=== PATIENT | female | born 1950 | race Caucasian/White ===

== ENCOUNTER 2020-04-20 08:41 | Outpatient (CLI) | payer MEDICARE, SELFPAY ==
--- NOTE | ~2020-04-20 | MM_ITS ---
EXAMINATION: MM screening aryan BI w jaz HISTORY: Screening TECHNIQUE: Craniocaudal and mediolateral oblique 3-D tomosynthesis images were obtained and synthetic 2-D images were generated. CAD analysis was submitted and interpreted. COMPARISON: Comparison to multiple prior studies sequentially, with oldest reviewed study dated 06/14. BREAST PARENCHYMAL COMPOSITION: There are scattered areas of fibroglandular density. FINDINGS: There are developing asymmetries in the right breast. There is no evidence of suspicious ma ss, calcification, or architectural distortion to suggest malignancy in the left breast. IMPRESSION: 1. Developing right breast asymmetries. 2. Additional mammographic views and possible breast ultrasound are recommended. BI-RADS Category 0: Incomplete: Needs additional imaging evaluation. Reviewed, dictated and finalized at location A. IMPRESSION: 1. Developing right breast asymmetries. 2. Additional mammographic views and possible breast ultrasound are recommended . BI-RADS Category 0: Incomplete: Needs additional imaging evaluation.
== END 2020-04-20 08:42 | disposition home or self-care (01) ==
PROVIDERS: PCP Family Medicine; Visit Provider Family Medicine
DX: Z12.31 Encounter for screening mammogram for malignant neoplasm of breast (principal)
CPT/HCPCS: 77063; 77067

== ENCOUNTER 2020-04-26 08:52 | Outpatient (CLI) | payer MEDICARE, SELFPAY ==
--- NOTE | ~2020-04-26 | MMUS_ITS ---
EXAMINATION: MM diagnostic aryan RT w jaz, US breast RT complete HISTORY: Follow-up right breast asymmetry TECHNIQUE: Additional 3-D tomosynthesis images of the right breast were performed and synthetic 2-D i mages were generated. CAD analysis was submitted and interpreted. High resolution right breast ultras ound was performed. COMPARISON: Comparison to multiple prior studies sequentially, with oldest reviewed study dated 06/14. BREAST PARENCHYMAL COMPOSITION: The breasts are heterogenously dense, which may obscure small masses. FINDINGS: MAMMOGRAPHIC FINDINGS: There are no suspicious masses, calcifications or architectural distortion in the right breast to sug gest malignancy. ULTRASOUND: Right breast ultrasound: At 4:00 there is a 3 mm cyst. No suspicious masses to suggest malignancy. IMPRESSION: 1. No mammographic or sonographic evidence for malignancy in the right breast. 2. Routine yearly screening mammogram and regular clinical breast examination are recommended. BI-RADS Category 2: Benign finding(s). Reviewed, dictated and finalized at location A. IMPRESSION: 1. No mammographic or sonographic evidence for malignancy in the right breast. 2. Routine yearly screening mammogram and regular clinical breast examination a re recommended. BI-RADS Category 2: Benign finding(s).
== END 2020-04-26 08:53 | disposition home or self-care (01) ==
LOC: CHSIMG 08:55
PROVIDERS: PCP Nurse Practitioner; Visit Provider Nurse Practitioner
DX: R92.8 Other abnormal and inconclusive findings on diagnostic imaging of breast (principal)
CPT/HCPCS: 76641; 77061; 77065; G0279

== ENCOUNTER 2020-12-29 08:34 | Outpatient (CLI) | payer MEDICARE, SELFPAY ==
[2020-12-29 08:49] LABS: Basophils Absolute Auto 0.06 K/mm3 (0.00-0.10); Basophils Percent Auto 0.7 % (0.0-1.0); Eosinophils Absolute Auto 0.29 K/mm3 (0.02-0.50); Eosinophils Percent Auto 3.2 % (1.0-6.0); Hematocrit 40.9 % (35.0-42.0); Hemoglobin 13.2 g/dL (11.7-13.8); Immature Granulocyte Absolute 0.04 K/mm3 (0.00-0.00); Immature Granulocyte Percent A 0.4 % (0.0-0.0); Lymphocytes Absolute Auto 3.03 K/mm3 (1.10-4.50); Lymphocytes Percent Auto 33.3 % (18.0-42.0); Mean Corpuscular HGB Conc 32.3 g/dL (32.0-36.0); Mean Corpuscular Hemoglobin 27.7 pg (27.0-31.0); Mean Corpuscular Volume 85.9 fL (78.0-102.0); Monocytes Absolute Auto 0.74 K/mm3 (0.10-0.90); Monocytes Percent Auto 8.1 % (2.0-11.0); Neutrophils Absolute Auto 4.9 K/mm3 (1.7-7.2); Neutrophils Percent Auto 54.3 % (50.0-70.0); Platelet Count Result 339 K/mm3 (150-420); Red Blood Count 4.76 M/mm3 (4.20-5.40); Red Cell Distribution Width 13.9 % (11.6-14.4); White Blood Count 9.1 K/mm3 (4.8-10.8)
[2020-12-29 09:30] LABS: Alanine Aminotransferase 31 U/L (14-59); Albumin Level 3.8 g/dL (3.4-5.0); Alkaline Phosphatase 126 U/L (46-116); Anion Gap 9 mmol/L (8-16); Aspartate Amino Transferase 12 U/L (15-37); Bilirubin,Total 0.6 mg/dL (0.00-1.00); Blood Urea Nitrogen 18 mg/dL (7-18); Calcium 9.6 mg/dL (8.5-10.1); Carbon Dioxide 28 mmol/L (21-32); Chloride 103 mmol/L (98-108); Cholesterol 153 mg/dL (0-200); Estimated Glomerular Filt Rate > 60; Glucose 110 mg/dL (70-99); HDL Direct 49 mg/dL (40-60); LDL Cholesterol Calculated 79 mg/dL (<130); Osmolality Calculated 292 mOsm/kg (285-295); Potassium 4.3 mmol/L (3.5-5.1); Sodium 140 mmol/L (136-145); Thyroid Stimulating Hormone 1.08 uIU/mL (0.36-3.74); Total Protein 7.1 g/dL (6.4-8.2); Triglycerides 124 mg/dL (0-150)
== END 2020-12-29 08:35 | disposition home or self-care (01) ==
LOC: CHSLAB 08:38
PROVIDERS: PCP Nurse Practitioner; Visit Provider Nurse Practitioner
DX: E78.2 Mixed hyperlipidemia (principal); E03.9 Hypothyroidism, unspecified
CPT/HCPCS: 36415; 80053; 80061; 84443; 85025

== ENCOUNTER 2021-02-28 13:46 | Outpatient (CLI) | payer MEDICARE, SELFPAY ==
--- NOTE | ~2021-02-28 | DEXA_ITS ---
Bone Density Report Name: Ludivina Townsend Age: 70 Sex: Female Ethnicity: White Date of : 1950 Indication: hyperparathyroidism; Referring Provider: Cassidy, Elly Hendrickson Study: Bone densitometry was performed. Exam Date: February 28, 2021 Accession number: [id number] Bone Density: Region BMD T-score Z-score Classification AP Spine(L2, L3, L4) 1.104 0.2 2.4 Normal Femoral Neck (Left) 0.587 -2.4 -0.5 Osteopenia Total Hip (Left) 0.788 -1.3 0.3 Osteopenia Femoral Neck (Right) 0.799 -0.5 1.4 Normal Total Hip (Right) 0.922 -0.2 1.4 Normal Femoral Neck Mean 0.693 -1.4 0.4 Osteopenia Total Hip Mean 0.855 -0.7 0.8 Normal World Health Organization criteria for BMD impression classify patients as: Normal (T-score at or above -1.0), Osteopenia (T-score between -1.0 and -2.5), or Osteoporosis (T-score at or below -2.5). 10-year Fracture Risk(1): Major Osteoporotic Fracture 13% Hip Fracture 3.1% Reported Risk Factors: [place] (), Neck BMD=0.587, BMI=30.7 (1) FRAX(R) Version 3.08. Fracture probability calculated for an untreated patient. Fracture probability may be lower if the patient has received treatment. Clinical Information Provided by Patient: Has used the following medications: Vitamin D, Calcium Has the following medical conditions: Hyperparathyroidism No regular weight bearing exercise Does not regularly consume dairy products Drinks caffeinated beverages Onset of menses at age 13 Number of children 2 Impression: The patient has low bone mass, based on the Left Femoral Neck T-score. Discussion: BONE DENSITY IS LOW AT ONE OR MORE SKELETAL SITES. This patient's lowest T-score is low at one or more skeletal sites. It meets the World Health Organization's (WHO) criteria for ?low bone mass? (T-score between -1.0 and -2.5). The patient's 10-year risk of fracture as calculated by FRAX is less than the threshold where pharmacological therapy is recommended by the National Osteoporosis Foundation (NOF). However, all treatment decisions require clinical judgment and consideration of individual patient factors, including patient preferences, comorbidities, previous drug use, risk factors not captured in the FRAX model (e.g., frailty, falls, vitamin D deficiency, increased bone turnover, interval significant decline in bone density) and possible under or overestimation of fracture risk by FRAX. The patient should follow a healthful lifestyle (good nutrition with adequate calcium and vitamin D, and appropriate weight-bearing exercise). Follow-Up: Consider repeating this study in 2 to 3 years to reassess this patient's status, or sooner if there is some new clinical indication. Reported by: Dr. Robert Galan on 02/28/2021 2:18:00 PM.
== END 2021-02-28 13:47 | disposition home or self-care (01) ==
LOC: CHSIMG 13:48
PROVIDERS: PCP Nurse Practitioner; Visit Provider Nurse Practitioner
DX: Z78.0 Asymptomatic menopausal state (principal)
CPT/HCPCS: 77080

== ENCOUNTER 2021-05-07 13:28 | Outpatient (CLI) | payer MEDICARE, SELFPAY ==
--- NOTE | ~2021-05-07 | US_ITS ---
EXAMINATION: US pelvic complete w TV EXAM DATE: 05/07/2021 14:14 INDICATION: N95.0 - Postmenopausal bleeding. TECHNIQUE: Pelvic transabdominal and transvaginal sonogram was performed. There are multiple graysca le and Doppler images available for interpretation. There is no prior study for comparison. FINDINGS: Uterus measures 5.3 x 3.2 x 3.9 cm, with region believed to be endometrium poorly delineat ed but could be up to 1.5 cm. Could be endometrial hyperplasia, polyp, submucosal fibroid or cancer. There is no free pelvic fluid. Right adnexa: The ovary is not identified. There is no adnexal mass. Left adnexa: The ovary is not identified. There is no adnexal mass. IMPRESSION: Ill-defined and probably thickened endometrial measurement, differential diagnosis includ ing endometrial hyperplasia, polyp, submucosal fibroid and cancer. Consider MRI or histologic correl ation. Reviewed, dictated and finalized at location A. IMPRESSION: Ill-defined and probably thickened endometrial measurement, differe ntial diagnosis including endometrial hyperplasia, polyp, submucosal fibroid an d cancer. Consider MRI or histologic correlation.
--- NOTE | ~2021-05-07 | MM_ITS ---
EXAMINATION: MM screening aryan BI w jaz HISTORY: Screening mammogram, family history of breast cancer in her sister. TECHNIQUE: Craniocaudal and mediolateral oblique 3-D tomosynthesis images were obtained and synthetic 2-D images were generated. CAD analysis was submitted and interpreted. COMPARISON: 04/26/2020, 04/20/2020, 10/01/2018, 09/18/2016 BREAST PARENCHYMAL COMPOSITION: There are scattered areas of fibroglandular density. FINDINGS: There is no evidence of suspicious mass, calcification, or architectural distortion to sugg est malignancy in either breast. There has been no suspicious interval change. IMPRESSION: 1. No mammographic evidence of malignancy. 2. Recommend routine screening mammography in one year. BI-RADS Category 1: Negative Reviewed, dictated and finalized at location A.
== END 2021-05-07 13:29 | disposition home or self-care (01) ==
LOC: CHSIMG 13:30
PROVIDERS: PCP Family Medicine; Visit Provider Obstetrics & Gynecology
DX: Z12.31 Encounter for screening mammogram for malignant neoplasm of breast (principal); N95.0 Postmenopausal bleeding
CPT/HCPCS: 76830; 76856; 77063; 77067

== ENCOUNTER 2022-06-09 07:21 | Outpatient (CLI) | payer MEDICARE, SELFPAY ==
--- NOTE | ~2022-06-09 | MM_ITS ---
EXAMINATION: MM screening aryan BI w jaz HISTORY: Screening mammogram TECHNIQUE: Craniocaudal and mediolateral oblique 3-D tomosynthesis images were obtained and synthetic 2-D images were generated. CAD analysis was submitted and interpreted. COMPARISON: 05/03/2021 bilateral screening mammogram 04/26/2020 diagnostic right mammogram and complete right breast ultrasound examination 04/20/2020 bilateral screening mammogram BREAST PARENCHYMAL COMPOSITION: There are scattered areas of fibroglandular density. FINDINGS: Right breast: Asymmetric density and architectural distortion is suggested in the upper mid outer rig ht breast anteriorly (MLO Tomosynthesis image 30/72). Diagnostic right mammogram and right breast ult rasound examination are recommended. Left breast: There is no evidence of suspicious mass, calcification, or architectural distortion to s uggest malignancy in either breast. There has been no suspicious interval change. IMPRESSION: 1. Asymmetry/architectural distortion in anterior upper right breast on MLO view 2. Diagnostic right mammogram and right breast ultrasound examination are recommended. BI-RADS Category 0: Incomplete: Needs additional imaging evaluation. Reviewed, dictated and finalized at location A. IMPRESSION: 1. Asymmetry/architectural distortion in anterior upper right breast on MLO vie w 2. Diagnostic right mammogram and right breast ultrasound examination are recom mended. BI-RADS Category 0: Incomplete: Needs additional imaging evaluation.
== END 2022-06-09 07:22 | disposition home or self-care (01) ==
PROVIDERS: PCP Nurse Practitioner; Visit Provider Nurse Practitioner
DX: Z12.31 Encounter for screening mammogram for malignant neoplasm of breast (principal)
CPT/HCPCS: 77063; 77067

== ENCOUNTER 2022-06-23 09:39 | Outpatient (CLI) | payer MEDICARE, SELFPAY ==
--- NOTE | ~2022-06-23 | MMUS_ITS ---
EXAMINATION: MM diagnostic aryan RT w jaz, US breast RT limited HISTORY: Follow-up right breast asymmetries TECHNIQUE: Additional 3-D tomosynthesis images of the right breast were performed and synthetic 2-D i mages were generated. CAD analysis was submitted and interpreted. High resolution Limited right breas t ultrasound was performed. COMPARISON: Comparison to multiple prior studies sequentially, with oldest reviewed study dated 01/2017. BREAST PARENCHYMAL COMPOSITION: Breast composed of scattered areas of fibroglandular density FINDINGS: MAMMOGRAPHIC FINDINGS: No discrete mass, suspicious calcifications or architectural distortion are identified. ULTRASOUND: Limited right breast ultrasound: At 10:00, 6 cm from the nipple there is a 4 mm cyst. No suspicious m asses in the right breast to suggest malignancy. IMPRESSION: 1. No evidence for malignancy in the right breast. 2. Routine yearly screening mammogram and regular clinical breast examination are recommended. BI-RADS Category 2: Benign finding(s). Reviewed, dictated and finalized at location A. IMPRESSION: 1. No evidence for malignancy in the right breast. 2. Routine yearly screening mammogram and regular clinical breast examination a re recommended. BI-RADS Category 2: Benign finding(s).
== END 2022-06-23 09:40 | disposition home or self-care (01) ==
PROVIDERS: PCP Family Medicine; Visit Provider Nurse Practitioner
DX: R92.8 Other abnormal and inconclusive findings on diagnostic imaging of breast (principal)
CPT/HCPCS: 76642; 77061; 77065; G0279

== ENCOUNTER 2022-12-08 07:22 | Outpatient (CLI) | payer MEDICARE, SELFPAY ==
--- NOTE | ~2022-12-08 | XR_ITS ---
EXAMINATION: XR knee RT min 4V DATE: 12/08/2022 07:53 INDICATION: Right knee pain. TECHNIQUE: 4 views of right knee on 5 radiographs were obtained. COMPARISON: None. FINDINGS: Bone alignment is normal. No fracture. There is moderate osteoarthritis of medial compartme nt and mild osteoarthritis of lateral and patellofemoral compartments. No knee joint effusion. There are loose bodies in the posterior knee joint and in a Frederick's cyst. IMPRESSION: 1. Moderate right knee osteoarthritis. 2. Loose bodies in the joint and in a Frederick's cyst. Reviewed, dictated and finalized at location A.
== END 2022-12-08 07:23 | disposition home or self-care (01) ==
LOC: CHSIMG 07:26
PROVIDERS: PCP Nurse Practitioner; Visit Provider Orthopaedic Surgery
DX: M25.561 Pain in right knee (principal); M17.11 Unilateral primary osteoarthritis, right knee; M71.21 Synovial cyst of popliteal space [Baker], right knee
CPT/HCPCS: 73564

== ENCOUNTER 2022-12-12 08:28 | Outpatient (CLI) | payer MEDICARE, SELFPAY ==
--- NOTE | ~2022-12-12 | US_ITS ---
EXAMINATION: US arterial ankle brachial ind DATE: 12/12/2022 09:12 INDICATION: Other specified symptoms and signs involving the circulatory system. TECHNIQUE: Segmental pressures and plethysmographic and Doppler waveforms of the brachial and lower e xtremity arteries were obtained. COMPARISON: None. FINDINGS: Right and left brachial artery pressures of 144 mm Hg and 154 mm Hg, respectively, are concordant (no rmal difference <= 30 mmHg). The right ankle-brachial index (HUMA) is 1.14 (normal >= 0.9-1.0). The right great toe-brachial index (TBI) is 0.84 (normal >= 0.65). Arterial Doppler waveforms are triphasic at the ankle. The left HUMA is 1.21. The left TBI is 0.71. Arterial Doppler waveforms are triphasic in posterior tib ial artery and biphasic in dorsalis pedis. IMPRESSION: 1. No significant arterial occlusive disease. Reviewed, dictated and finalized at location A.
== END 2022-12-12 08:29 | disposition home or self-care (01) ==
LOC: CHSIMG 08:30
PROVIDERS: PCP Nurse Practitioner; Visit Provider Nurse Practitioner
DX: R09.89 Other specified symptoms and signs involving the circulatory and respiratory systems (principal)
CPT/HCPCS: 93922

== ENCOUNTER 2023-01-15 09:16 | Outpatient (CLI) | payer MEDICARE, SELFPAY ==
--- NOTE | 2023-01-15 11:00 | NEURO_ITS ---
Impression: # Complains of numbness in all extremities. History of cancer and chemotherapy. 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 # Needle/EMG exam reveals scarcity of motor unit potentials but no fibrillations. Nerve Conduction Studies Anti Sensory Summary Table Stim Site NR Peak (ms) P-T Amp (?V) Site1 Site2 Delta-P (ms) Dist (cm) Ramy (m/s) Left Median Anti Sensory (2-3nd Digit) Wrist 3.5 33.6 Wrist 2-3nd Digit 3.5 14.0 40 Wrist 3.6 22.5 Wrist 2-3nd Digit 3.5 14.0 40 Right Median Anti Sensory (2-3nd Digit) Wrist 4.0 38.4 Wrist 2-3nd Digit 4.0 14.0 35 Wrist 5.3 29.4 Wrist 2-3nd Digit 4.0 14.0 35 Left Radial Anti Sensory (Base 1st Digit) Wrist 2.5 7.6 Wrist Base 1st Digit 2.5 0.0 Right Radial Anti Sensory (Base 1st Digit) Wrist 3.3 16.5 Wrist Base 1st Digit 3.3 0.0 Left Sup Fibular Anti Sensory (Ant Lat Mall) NO RESPONSE 14 cm NR 14 cm Ant Lat Mall 16.0 Right Sup Fibular Anti Sensory (Ant Lat Mall) NO RESPONSE 14 cm NR 14 cm Ant Lat Mall 16.0 Left Sural Anti Sensory (Lat Mall) NO RESPONSE Calf NR Calf Lat Mall 16.0 Right Sural Anti Sensory (Lat Mall) NO RESPONSE Calf NR Calf Lat Mall 16.0 Left Ulnar Anti Sensory (5th Digit) Wrist 3.1 56.7 Wrist 5th Digit 3.1 14.0 45 Right Ulnar Anti Sensory (5th Digit) NO RESPONSE Wrist NR Wrist 5th Digit 14.0 Motor Summary Table Stim Site NR Onset (ms) O-P Amp (mV) Site1 Site2 Delta-0 (ms) Dist (cm) Ramy (m/s) Left Median Motor (Abd Poll Brev) Wrist 3.7 4.2 Elbow Wrist 5.1 29.0 57 Elbow 8.8 3.5 Right Median Motor (Abd Poll Brev) Wrist 3.8 3.0 Elbow Wrist 4.8 27.0 56 Elbow 8.6 1.8 Left Peroneal Motor (Vastus Med) NO RESPONSE Ankle NR Popit Ankle 0.0 Popit NR Right Peroneal Motor (Vastus Med) Ankle 5.5 1.1 Popit Ankle 9.0 38.0 42 Popit 14.5 1.4 Left Tibial Motor (Abd Bruno Brev) Ankle 5.0 1.0 Knee Ankle 9.2 40.0 43 Knee 14.2 0.5 Right Tibial Motor (Abd Brnuo Brev) Ankle 5.3 1.0 Knee Ankle 10.3 36.0 35 Knee 15.6 0.5 Left Ulnar Motor (Abd Dig Minimi) Wrist 2.7 6.4 A Elbow Wrist 5.8 29.0 50 A Elbow 8.5 3.5 B Elbow Wrist 4.3 22.0 51 B Elbow 7.0 5.0 Right Ulnar Motor (Abd Dig Minimi) Wrist 2.8 5.4 A Elbow Wrist 6.2 29.0 47 A Elbow 9.0 3.4 B Elbow Wrist 4.3 21.0 49 B Elbow 7.1 4.5 F Wave Studies NR F-Lat (ms) L-R F-Lat (ms) Left Median (Mrkrs) (Abd Poll Brev) 29.38 1.23 Right Median (Mrkrs) (Abd Poll Brev) 30.61 1.23 Left Peroneal (Mrkrs) (EDB) DISPERSED RESPONSE NR Right Peroneal (Mrkrs) (EDB) DISPERSED RESPONSE NR Left Tibial (Mrkrs) (Abd Hallucis) 57.86 3.32 Right Tibial (Mrkrs) (Abd Hallucis) 61.18 3.32 Left Ulnar (Mrkrs) (Abd Dig Min) 28.89 1.93 Right Ulnar (Mrkrs) (Abd Dig Min) 30.82 1.93 EMG Side Muscle Nerve Root Ins Act Fibs Amp Dur Recrt Comment Right 1stDorInt Ulnar C8-T1 Nml Nml Nml >12ms Reduced Right Ext Indicis Radial (Post Int) C7-8 Nml Nml Nml Nml Nml Right Ext Digitorum Radi
== END 2023-01-15 09:17 | disposition home or self-care (01) ==
LOC: ANHNEURO 09:17
PROVIDERS: PCP Nurse Practitioner; Visit Provider Nurse Practitioner
DX: G62.0 Drug-induced polyneuropathy (principal)
CPT/HCPCS: 95886; 95913

== ENCOUNTER 2023-01-29 09:44 | Outpatient (CLI) | payer MEDICARE, SELFPAY ==
--- NOTE | ~2023-01-29 | XR_ITS ---
XR hip LT min 2V 01/29/2023 10:09 Indication: Posterior left hip pain Procedure: 2 views left hip Comparison: No prior studies for comparison. Findings: Mild osteoarthritis of the left hip. No fracture or traumatic malalignment. No soft tissue abnormality. No foreign bodies. Impression: 1: Mild osteoarthritis of the left hip. Reviewed, dictated and finalized at location L. Impression: 1: Mild osteoarthritis of the left hip.
== END 2023-01-29 09:45 | disposition home or self-care (01) ==
LOC: CHSIMG 09:47
PROVIDERS: PCP Nurse Practitioner; Visit Provider Nurse Practitioner
DX: M25.552 Pain in left hip (principal); M16.12 Unilateral primary osteoarthritis, left hip
CPT/HCPCS: 73502

== ENCOUNTER 2023-01-30 16:43 | Outpatient (RCR) | payer MEDICARE, SELFPAY ==
--- NOTE | 2023-01-30 17:34 | PTOPEVAL1 ---
Assessment and note entered by JT File, PT Evaluation Information Assessment Status Evaluation Diagnosis L side low back pain Onset 01/12/23 Subjective Information patient reports she fell and hit a step on the L side of her lower back. she reports this fall was on 01/12/23. she reports she is not getting any better. she reports she has increased pain with twisting to the L side and bending forward. she reports she has difficulty trying to dry off from a shower, bending to plant schaefer in her garden, and getting up from sitting in a chair are all bothersome. she reports she has not NTB in the L LE. Reported Pain Level Pain Score 7: Self Report Assessment PT Clinical Summary mrs. rodriguez presents to skilled PT services for evaluation and treatment of L side thoracolumbar pain. she presents with lumbar/core weakness, LE weakness, decreased rom, and pain. she displays signs and symptoms consistent with L thoracolumbar paraspinal mm hypertonicity and DDD. she would benefit from continued skilled PT to improve her objective/functional deficits and progress toward a return to her prior level functional activity performance and quality of life. Plan of Care Interventions Electrical Stimulation,Gait Training,Hot Pack/Cold Pack,Manual Therapy,Neuro Re-education,Patient/ Caregiver Educati,Therapeutic Activities, Therapeutic Exercise PT Services Indicated Yes Treatment Frequency and 3x weekly for 12 visits Duration These treatments will address the objective and functional deficits as defined above. The patient will be advanced safely and appropriately in order for the patient to progress towards his/her prior level of function. Additional exercises will be introduced and as well as a comprehensive home exercise program upon discharge, if needed, ?to ensure carryover of functional gains achieved in the clinic. This treatment plan has been reviewed and agreement upon by the patient.
--- NOTE | 2023-03-04 16:34 | PTOPPROGNS ---
Assessment and note entered by Renetta Corley DPT Evaluation Information Assessment Status Progress Diagnosis L side low back pain Onset 01/12/23 Subjective Information Patient reports that she has noticed good improvement since starting PT. Assessment PT Clinical Summary Patient has been seen for 0 visits of skilled PT to address low back pain. Patient reports improvement in overall pain levels. She demonstrates improved LE strength and improved lumbar ROM but continues to lack core and hip abduction strength. She reports difficulty with standing for long periods of time to cook and clean. She would benefit from continued skilled PT for remaining [address] [facility]. Plan of Care Interventions Electrical Stimulation,Gait Training,Hot Pack/Cold Pack,Manual Therapy,Neuro Re-education,Patient/ Caregiver Educati,Therapeutic Activities, Therapeutic Exercise PT Services Indicated Yes Treatment Frequency and continue remaining 2 visits Duration These treatments will address the objective and functional deficits as defined above. The patient will be advanced safely and appropriately in order for the patient to progress towards his/her prior level of function. Additional exercises will be introduced and as well as a comprehensive home exercise program upon discharge, if needed, ?to ensure carryover of functional gains achieved in the clinic. This treatment plan has been reviewed and agreement upon by the patient.
--- NOTE | 2023-03-11 10:43 | PTOPDC ---
Assessment and note entered by Stephanie Woodall, PT Evaluation Information Assessment Status Discharge Diagnosis L Low Back Pain Onset 01/12/23 Subjective Information Ludivina Townsend reports that her lower back pain has improved significantly since in initiating PT. She is reporting 0/10 pain currently and has not had pain over the last week. She is able to perform all ADLs including driving, walking, and grocery shopping without difficulty. She feels she has improved 90% overall and she is ready for discharge. Reported Pain Level Pain Score 0: Self Report Assessment PT Clinical Summary Ludivina Townsend has completed 12 skilled PT visits for LBP. She is reporting a resolution of low back pain and feels she has improved 90% overall. She demonstrates functional and pain free lumbar AROM, good LE strength, good balance, and good gait mechanics. She was able to ambulate 1, 325 feet without an AD during the 6 min walk test. She is independent in a home program to continue lumbar ROM, LE flexibility, and core strengthening . She will be discharged. Plan of Care PT Services Indicated Yes
== END 2023-03-11 13:36 | disposition home or self-care (01) ==
LOC: CHSPT 16:43
PROVIDERS: PCP Nurse Practitioner; Visit Provider Nurse Practitioner
DX: M25.552 Pain in left hip (principal)
CPT/HCPCS: 97014; 97110; 97112; 97140; 97150; 97161; 97750; G0283

== ENCOUNTER 2023-06-10 09:07 | Outpatient (CLI) | payer MEDICARE, SELFPAY ==
--- NOTE | ~2023-06-10 | DEXA_ITS ---
Bone Density Report Name: FAUSTO PACHECO Age: 72 Sex: Female Ethnicity: White Date of : 1950 Indication: postmenopausal; screening for osteoporosis; height loss; prior fracture; cancer; Referring Provider: Cassidy, Elly Hendrickson Study: Bone densitometry was performed. Exam Date: June 10, 2023 Accession number: [id number] Bone Density: Region BMD T-score Z-score Classification AP Spine(L2, L3, L4) 1.092 0.1 2.5 Normal Femoral Neck (Left) 0.613 -2.1 -0.2 Osteopenia Total Hip (Left) 0.800 -1.2 0.5 Osteopenia Femoral Neck (Right) 0.661 -1.7 0.3 Osteopenia Total Hip (Right) 0.859 -0.7 1.0 Normal Femoral Neck Mean 0.637 -1.9 0.0 Osteopenia Total Hip Mean 0.830 -0.9 0.7 Normal World Health Organization criteria for BMD impression classify patients as: Normal (T-score at or above -1.0), Osteopenia (T-score between -1.0 and -2.5), or Osteoporosis (T-score at or below -2.5). 10-year Fracture Risk(1): Major Osteoporotic Fracture 19% Hip Fracture 3.9% Reported Risk Factors: [place] (), Neck BMD=0.613, BMI=32.3, previous fracture (1) FRAX(R) Version 3.08. Fracture probability calculated for an untreated patient. Fracture probability may be lower if the patient has received treatment. Clinical Information Provided by Patient: Has had a low trauma fracture Has used the following medications: Vitamin D, Calcium Has the following medical conditions: Cancer Patient maximum height was 66 Menopause Age: 51 No regular weight bearing exercise Does not regularly consume dairy products Drinks caffeinated beverages Onset of menses at age 14 Number of children 2 Impression: The patient has low bone mass, based on the Left Femoral Neck T-score. The patient has risk factors, including: previous fracture. Discussion: BONE DENSITY IS LOW AT ONE OR MORE SKELETAL SITES. This patient's lowest T-score is low at one or more skeletal sites. It meets the World Health Organization's (WHO) criteria for ?low bone mass? (T-score between -1.0 and -2.5). The patient's 10-year risk of fracture as calculated by FRAX is less than the threshold where pharmacological therapy is recommended by the National Osteoporosis Foundation (NOF). However, all treatment decisions require clinical judgment and consideration of individual patient factors, including patient preferences, comorbidities, previous drug use, risk factors not captured in the FRAX model (e.g., frailty, falls, vitamin D deficiency, increased bone turnover, interval significant decline in bone density) and possible under or overestimation of fracture risk by FRAX. The patient should follow a healthful lifestyle (good nutrition with adequate calcium and vitamin D, and appropriate weight-bearing exercise). Follow-Up: Consider repeating this study in 2 to 3 years to reassess this patient's status, or sooner i
--- NOTE | ~2023-06-10 | MM_ITS ---
EXAMINATION: MM screening aryan BI w jaz HISTORY: Screening mammogram TECHNIQUE: Craniocaudal and mediolateral oblique 3-D tomosynthesis images were obtained and synthetic 2-D images were generated. CAD analysis was submitted and interpreted. COMPARISON: 06/23/2022 diagnostic right mammogram and limited right breast ultrasound 06/09/2022, 05/03/2021 bilateral screening mammogram examinations BREAST PARENCHYMAL COMPOSITION: There are scattered areas of fibroglandular density. FINDINGS: There is no evidence of suspicious mass, calcification, or architectural distortion to sugg est malignancy in either breast. There has been no suspicious interval change. IMPRESSION: 1. No mammographic evidence of malignancy. 2. Recommend routine screening mammography in one year. BI-RADS Category 1: Negative Reviewed, dictated and finalized at location A.
== END 2023-06-10 09:08 | disposition home or self-care (01) ==
LOC: CHSIMG 09:09
PROVIDERS: PCP Nurse Practitioner; Visit Provider Nurse Practitioner
DX: Z12.31 Encounter for screening mammogram for malignant neoplasm of breast (principal); Z78.0 Asymptomatic menopausal state; M85.89 Other specified disorders of bone density and structure, multiple sites
CPT/HCPCS: 77063; 77067; 77080

== ENCOUNTER 2024-08-15 12:52 | Outpatient (CLI) | payer MEDICARE, SELFPAY ==
--- NOTE | ~2024-08-15 | MM_ITS ---
EXAMINATION: MM screening aryan BI w jaz HISTORY: Screening TECHNIQUE: Craniocaudal and mediolateral oblique 3-D tomosynthesis images were obtained and synthetic 2-D images were generated. CAD analysis was submitted and interpreted. COMPARISON: Comparison to multiple prior studies sequentially, with oldest reviewed study dated 04/20/2020. BREAST PARENCHYMAL COMPOSITION: Not dense: There are scattered areas of fibroglandular density. FINDINGS: There is architectural distortion in the upper outer quadrant of the right breast, not defi nitely seen on prior examination. There are benign appearing calcifications. No evidence for malignan cy in the left breast. IMPRESSION: 1. Architectural distortion lateral aspect of the right breast on CC view. 2. Additional mammographic views and possible breast ultrasound are recommended. BI-RADS Category 0: Incomplete: Needs additional imaging evaluation. Reviewed, dictated and finalized at location B. INTEGRITY IMPRESSION: 1. Architectural distortion lateral aspect of the right breast on CC view. 2. Additional mammographic views and possible breast ultrasound are recommended . BI-RADS Category 0: Incomplete: Needs additional imaging evaluation.
== END 2024-08-15 12:53 | disposition home or self-care (01) ==
PROVIDERS: PCP Nurse Practitioner; Visit Provider Nurse Practitioner
DX: Z12.31 Encounter for screening mammogram for malignant neoplasm of breast (principal); R92.8 Other abnormal and inconclusive findings on diagnostic imaging of breast
CPT/HCPCS: 77063; 77067

== ENCOUNTER 2024-08-29 09:23 | Outpatient (CLI) | payer MEDICARE, SELFPAY ==
--- NOTE | ~2024-08-29 | MMUS_ITS ---
EXAMINATION: MM diagnostic aryan RT w jaz, US breast RT limited HISTORY: Follow-up right breast architectural distortion TECHNIQUE: Additional 3-D tomosynthesis images of the right breast were performed and synthetic 2-D i mages were generated. CAD analysis was submitted and interpreted. High resolution Limited right breas t ultrasound was performed. COMPARISON: Comparison to multiple prior studies sequentially, with oldest reviewed study dated 04/26. BREAST PARENCHYMAL COMPOSITION: Not dense: There are scattered areas of fibroglandular density. FINDINGS: MAMMOGRAPHIC FINDINGS: There is focal architectural distortion laterally in the right breast on CC view. This is not delinea drea on medial lateral or MLO views. No definite centrally located mass. ULTRASOUND: Limited right breast ultrasound: Oral heterogeneous echotexture without focal solid or cystic mass. IMPRESSION: 1. Architectural distortion lateral aspect of the right breast on CC view. No sonographic correlate. 2. Correlation with breast MRI is recommended to assess for abnormal enhancing mass. BI-RADS Category 0: Incomplete: Needs additional imaging evaluation. Reviewed, dictated and finalized at location B. H MAKING MACHINE OPERATOR IMPRESSION: 1. Architectural distortion lateral aspect of the right breast on CC view. No s onographic correlate. 2. Correlation with breast MRI is recommended to assess for abnormal enhancing mass. BI-RADS Category 0: Incomplete: Needs additional imaging evaluation.
== END 2024-08-29 09:24 | disposition home or self-care (01) ==
LOC: CHSIMG 09:27
PROVIDERS: PCP Nurse Practitioner; Visit Provider Nurse Practitioner
DX: R92.8 Other abnormal and inconclusive findings on diagnostic imaging of breast (principal)
CPT/HCPCS: 76642; 77061; 77065; G0279

== ENCOUNTER 2024-10-10 09:57 | Outpatient (CLI) | payer MEDICARE, SELFPAY ==
--- NOTE | ~2024-10-10 | MR_ITS ---
MR breast BI wo/w con 10/10/2024 16:08 CONSTRUCTION REP INDICATION: Architectural distortion identified in the lateral aspect of the right breast on recent m ammogram. No sonographic correlate. TECHNIQUE: MRI of the breasts perform using standard protocol pre-and post IV contrast with the follo wing sequences: Axial T2 STIR, axial T1, axial vibrant T1 with fat suppression precontrast and multip hasic postcontrast. 17 cc of MultiHance administered intravenously. COMPARISON: Comparison to multiple prior studies sequentially, with oldest reviewed study dated 05/07. FINDINGS: There is heterogeneous fibroglandular tissue. Right breast: There are no abnormalities on the precontrast sequences. There is mild background paren chymal enhancement. In the upper outer quadrant of the right breast there is an enhancing mass at 10: 00, middle third, 6.2 cm posterior to the nipple measuring 10 x 8 x 9 mm. There is rapid plateau enha ncement. In the lower outer quadrant of the right breast at 8:00, middle third there is a 5 mm oval e nhancing mass which appears circumscribed with rapid washout kinetics. There are mildly prominent rig ht axillary lymph node with loss of fatty hilum one of which measures 1.2 cm with rapid washout enhan cement. There is a mildly prominent lymph node posterior to the pectoralis muscle measuring 1.4 x 0.7 x 0.9 cm with rapid washout kinetics. LEFT BREAST: No signal abnormalities on precontrast sequences. There is moderate background parenchy mal enhancement. There are multiple areas of nonmass-like enhancement, likely background enhancement in the left breast in the lower inner quadrants of the left breast there is an oval mass at 9:00, mid dle third measuring 8 x 4 x 4 mm with rapid washout kinetics. No evidence of signal abnormalities in the axillary or internal mammary node distributions.] IMPRESSION: 1: Right breast: Enhancing 1 cm mass in the upper outer quadrant of the right breast with rapid plat eau enhancement. This likely corresponds to the area of architectural distortion seen on mammography. Abnormal lymph nodes are present in the right axilla and posterior to the pectoralis muscle. Further evaluation with MRI guided biopsy recommended to exclude malignancy. BI-RADS Category 4. 2: Left breast: Enhancing 8 mm mass of the left breast in the lower inner quadrant at 9:00, middle t hird measuring 8 mm maximum dimension with rapid washout kinetics. Recommend correlation with left br east ultrasound. BI-RADS Category 0. Reviewed, dictated and finalized at location A. TRUCTION REP IMPRESSION: 1: Right breast: Enhancing 1 cm mass in the upper outer quadrant of the right breast with rapid plateau enhancement. This likely corresponds to the area of a rchitectural distortion seen on mammography. Abnormal lymph nodes are present i n the right axilla and posterior to the pectoralis muscle. Further evaluation w ith MRI guided biopsy recommended to exclude malignancy. BI-RADS Category 4. 2: Left breast: Enhancing 8 mm mass of the left breast in the lower inner quad rant at 9:00, middle third measuring 8 mm maximum dimension with rapid washout kinetics. Recommend correlation with left breast ultrasound. BI-RADS Category 0 .
--- OUTSIDE RECORDS SUMMARY | 2024-10-10 10:48 | XMS_ITS | Data Portability ---
Author Organization [facility], [address] 4[address] Neurology ([facility]) Address [address] [address] Care Team Providers Care Assembly Machine Operator Name Role Phone RANDI SEGAL Primary Care Provider RANDI SEGAL Referring Provider Assessment Encounter Date Assessment Date Assessment LastModified by Organization Details LastModified Time 08/22/2024 08/22/2024 1. CAD: C in 02/2020 showed moderate disease of the mid LAD. She denies any anginal symptoms. Continue aggressive treatment of CAD risk factors. Continue aspirin, Toprol, atorvastatin 2. Hyperlipidemia: Goal LDL less than 70, ideally around 55. Continue atorvastatin 3. Hypertension: BP at the upper limits of normal. Continue metoprolol. 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 Continue to monitor. 5. Tricuspid regurgitation: No significant valvular stenosis or regurgitation seen on recent echocardiogram. 6. Follow-up in 1 year. Earlier if needed. [email or web address] Not available 09/01/2024 16:33:03 Plan of Treatment Reminders Order Date Submit Date Provider Last Modified By Organization Details Last Modified Time Details Appointments Establish ed Patient 15.EST 2024 09:30A M [facility] Not available Not available Not available Lab None recorded. Referral None recorded. Procedures None recorded. Surgeries None recorded. Imaging None recorded. Medication Orders None recorded. Patient TargetsNo targets recorded. Patient InstructionsNo instructions recorded. Reason for Referral None Reported. Results Created Date Observation Date Name Description Value Unit Range Abnormal Flag Note LastModifiedBy Organization Detail LastModifiedTime 08/17/20 24 08/15/2024 , echo tariq [facility] [address] [place] [address] Ph: [phone] [email or web address] m Adult Echoca rdiogr am Report Name: Ludivina OLIVIER Study Date: 2023 : 1949 0[birth year] Gender : Female Age: 74 yrs Height : 65 in Weight : 185 lb BSA: 1.9 m2 Orderi ng Physic nuvia: Calista Gaitan Perfor med By: Fatuma lomax RDCS Reason For Study: CAD araujo ry artery diseas e I25.10 Patien t Locati on: CARDIO LOGY BP: 131/73 mmHg Interp retati on Summar y Left ventri cular systol ic functi on is normal . The left ventri cular ejecti on fracti on is visual ly estima drea at= 60- 65%. The right ventri rodney is normal in size and functi on. No signif icant valvul ar stenos is/reg urgita tion. PROCED URE DETAIL S: A comple te transt horaci c echoca rdiogr am was perfor med (2D; M-mode ; spectr al and color flow Dopple r). LEFT VENTRI RODNEY: Sigmoi d shaped septum with focal hypert rophy of the basal septum . The remain ing spence are normal . The left ventri rodney is normal in size. Left ventri cular systol ic functi on is normal . The left ventri cular ejecti on fracti on is visual ly estima drea at= 60-65% . The left ventri cular diasto lic fillin g patter n is normal for age. The left ventri cular wall motion is normal . LEFT ATRIUM /ATRIA L SEPTUM : The left atrial volume index is normal by BSA and gender . No eviden ce for atrial shunti ng by color Dopple r. RIGHT ATRIUM : Visual estima te of right atrial size: normal . RIGHT VENTRI RODNEY: TAPSE is normal at 1.8 cm (> or =1.7cm is normal ). The right ventri rodney is normal in size and functi on. AORTIC VALVE: The aortic valve is trilea flet. The aortic valve leafle ts are thin and pliabl e. There is no eviden ce of aortic stenos is. There is trivia l physio logic aortic regurg itatio n. MITRAL VALVE: The mitral valve leafle ts are thin and pliabl e. There is no mitral valve stenos is. There is trace mitral regurg itatio n. TRICUS PID VALVE: The tricus pid valve is not well visual ized. There is no tricus pid stenos is. Right ventri cular systol ic pressu re is normal at 20-25 mmHg. There is trace tricus pid regurg itatio n. PULMON IC VALVE: The pulmon ic valve is not well visual ized. There is no pulmon ic valvul ar stenos is. There is no pulmon ic valvul ar regurg itatio n. ARTERI ES: The sinus( es) of Valsal va measur es 3.5 cm which is within normal limits when correc drea for BSA and age. The ascend ing aorta measur es 3.5 cm, which is within normal limits when correc drea for BSA and gender . The abdomi nal aorta measur es normal at 2.1 cm. The transv erse and descen ding aorta were not well visual ized. The pulmon hunter artery is not well visual ized. VENOUS : The pulmon hunter vein flow patter ns appear normal . The inferi or vena cava is normal in size, with normal respir atory variat ion. PERICA RDIUM/ PLEURA : Anteri or clear space noted, speckl ed appear ance sugges ts adipos e tissue rather than perica rdial effusi on. MMode/ 2D Measur ements IVSd: 1.7 cm LVIDd: 4.4 cm LVPWd: 0.95 cm LV mass(C )d: 221.8 grams LV mass Index: 115.9 grams/ m2 Ao sinus of Valsal va diam: 3.5 cm Asc Ao: 3.5 cm TAPSE_ phl: 1.8 cm Abdomi nal Aorta: 2.1 cm LA vol: 40.1 ml LA vol index: 20.9 ml/m2 RVd base: 4.1 cm Dopple r Measur ements MV E max lulu: 67.0 cm/sec MV A max lulu: 88.1 cm/sec MV E/A: 0.76 MV dec time: 0.26 sec AV max: 114.7 cm/sec Ao max P.3 mmHg LVOT max P.4 mmHg LVOT max: 77.9 cm/sec TV E max lulu: 37.8 cm/sec PV max: 84.6 cm/sec PV max P.9 mmHg TR max lulu: 207.9 cm/sec TR max P.3 mmHg RVSP(T R): 20.3 mmHg RAP systol e: 3.0 mmHg AV Dimens ionles s Index: 0.68 MV E': 6.4 cm/sec MV E/E' ratio: 10.5 Electr onical ly signed by:Yanely Gaitan MD 2023 11:35 AM cc: Ludivina Olivier 2023 CARDIO ECHO INTERFACE [facility] Only - [facility] [address], [place], [address], 08/17/2024 12:37:17 08/22/20 24 08/22/2024 elect rocar diogr am, routi ne ECG, 12 leads min No observ ation record ed. [email or web address] [facility] Only - [facility] Ekg [address] [address], [place], [address], 08/22/2024 12:35:08 08/29/20 24 08/22/2024 elect rocar diogr am, routi ne ECG, 12 leads min No observ ation record ed. [email or web address] Sc Only - [facility] [address] [address], [place], [address], 08/31/2024 09:57:23 Result Notes None recorded. Problems Name Problem SNOMED Code Status Onset Date Resolution Date Notes Provider Name and Address Organization Details Recorded Time Coronary arterioscleros is 14809633 Active 2023 [facility] 08:39:15 Hyperlipidemia 03600460 Active 2023 Stephanie Pedroza, AIRCRAFT LAYOUT WORKER, [employer]ANK PIECE TACKER [address], [place], [address], [facility] 4 16:33:15 Benign essential hypertension 2049578 Active 2023 Stephaniehayes Pedroza APRN, [employer] T[employer]ER [address] [place] [address], [address], [facility] 4 16:33:19 Atrial myxoma 522724653 Active 2023 Stephaniehayes Pedroza APRN, [employer] T[employer]ER [address] [place] [address], [phone], [facility] 4 16:33:36 Problem Notes None recorded. Procedures Surgical History Date Name Laterality Status Provider Name and Address Organization Details Recorded Time Colonoscopy with biopsy completed Not Available Health Note 08/13/2024 11:00:06 Total hysterectomy completed Not Available Health Note 08/13/2024 11:00:06 Imaging Results Imaging Date Name Status LastModified by Organization Details LastModified Time 08/15/2024 , echocardiogram completed INTERFACE [facility] [address] [place] [address], [address], 08/17/2024 12:37:17 08/22/2024 electrocardiogram, routine ECG, 12 leads min completed [address] Only - [facility] Ekg [address] [address], [place], [address], 08/22/2024 12:35:08 08/22/2024 electrocardiogram, routine ECG, 12 leads min completed [address] Only - [facility] Ekg [address] [address], [place], [address], 08/31/2024 09:57:23 Procedure Notes None recorded. Medical Equipment None Reported. Medications Name Sig Start Date Stop Date Status Note LastModified by Organization Details LastModified Time atorvastatin 20 mg tablet TAKE 1 TABLET BY MOUTH EVERY DAY 08/18 completed Not Available Not Available Not Available atorvastatin 10 mg tablet TAKE 1 TABLET BY MOUTH EVERY DAY active Not Available Not Available No t Available pantoprazole 20 mg tablet,delaye d release TAKE 1 TABLET BY MOUTH EVERY DAY active Not Available Not Available No t Available levothyroxine 125 mcg tablet TAKE 1 TABLET BY MOUTH EVERY DAY active Not Available Not Available No t Available aspirin 81 mg chewable tablet Chew 1 tablet every day by oral route. active Not Available Not Available No t Available metoprolol tartrate 25 mg tablet TAKE 1/2 TABLET BY MOUTH TWICE A DAY active Not Available Not Available No t Available Vitals Date Recorded Heart rate Provider Name an d Address Organization Details Last Updated DateTime 08/22/2024 76 /min Elenita Clarkeby [facility] 08/22/2024 10:33:54 Date Recorded Oxygen saturation Oxygen saturation in Arterial blood by Pulse oximetry Provider Name and Address Organization Details Last Updated DateTime 08/22/2024 98 % 98 % Elenita Clarkeby [facility] 08/22/2024 10:33:56 Date Recorded Body weight Provider Name an d Address Organization Details Last Updated DateTime 08/22/2024 86079.74 g Elenita Clarkeby [facility] 08/22/2024 10:34:01 Date Recorded Systolic blood pressure Diastolic blood pressure Provider Name and Address Organization Details Last Updated DateTime 08/22/2024 142 mm[Hg] 70 mm[Hg] Elenita Clarkeby [facility] 08/22/2024 10:33:51 Social History Question Answer Notes LastModified by Organizat ion Details LastModified Time Tobacco Smoking Status Never Smoker Not Available Health Note 08/13/2024 11:00:07 Do You Have An Advance Directive? Yes [email or web address] Information not available 08/13/2024 What Is Your Level Of Alcohol Consumption? None [email or web address] Information not available 08/13/2024 What Is Your Level Of Caffeine Consumption? Moderate [email or web address] Information not available 08/13/2024 What Is Your Code Status? Full Code [email or web address] Information not available 08/13/2024 Are You Currently Employed? No [email or web address] Information not available 08/13/2024 What Is Your Occupation? [employer] [email or web address] Information not available 08/13/2024 How Many Times Per Week Do You Exercise? 1-2 Times Per Week [email or web address] Information not available 08/13/2024 What Was The Date Of Your Most Recent Tobacco Screening? 08/15/2024 [email or web address] Information not available 08/13/2024 What Is Your Relationship Status? [email or web address] Information not available 08/13/2024 Do You Use Any Illicit Or Recreational Drugs? No [email or web address] Information not available 08/13/2024 Sex: Unknown Functional Status Question Answer Note LastModified by Organizat ion Details LastModified Time What is your exercise level? Occasional [email or web address] Information not available 08/13/2024 Mental Status None recorded. Family History Relationship Description Onset Age of this Age Resolved Age Notes LastModified by Organization Details LastModified Time Mother Family history of malignant neoplasm [email or web address] Not available 2023 11:00:05 Mother Diabetes mellitus [email or web address] Not available 2023 11:00:05 Mother Heart disease [email or web address] Not available 2023 11:00:05 Mother Hypertensive disorder [email or web address] Not available 2023 11:00:05 Mother Disorder of thyroid gland [email or web address] Not available 2023 11:00:05 Sister Family history of malignant neoplasm [email or web address] Not available 2023 11:00:05 Sister Diabetes mellitus [email or web address] Not available 2023 11:00:05 Brother Heart disease [email or web address] Not available 2023 11:00:05 Brother Hypertensive disorder [email or web address] Not available 2023 11:00:05 Brother Seizure disorder [email or web address] Not available 2023 11:00:05 Medical History Condition Response Diabetes N Anxiety Disorder N Bleeding Disorder N Attention-deficit Hyperactivity Disorder N High Blood Pressure N Arthritis N Hyperlipidemia N Cancer Y Stroke N Thyroid Problems Y Asthma N Depression N COPD N Anemia N Seizures N Heart Disease N Fibromyalgia N Osteoporosis N Kidney Disease N Gynecological HistoryNo gynecological history recorded. Obstetrics History GPAL:G 0 P 0 0 0 0 Past Encounters Encounter ID Performer Location Encounter Start Date Encounter Closed Date Diagnosis/Indication Diagnosis SNOMED-CT Code Diagnosis ICD10 Code Diagnosis Note [id number] Stephanie Pedroza, AIRCRAFT LAYOUT WORKER, SHANK PIECE TACKER [address] [facility] ([place]) [address] [place] [address] 08/22/2024 10:22:58 08/22/2024 11:16:36 Coronary arteriosclerosis 25949080 I25.10 Hyperlipidemia 95346089 E78.5 Benign ess ential hypertension 2742071 I10 Atrial myxoma 133428998 D15.1 s/p resection Health Concerns Section Related Observation LastModified by Organization Detai ls LastModified Time None Recorded Concern Status LastModified by Organization Details LastModified Time None Recorded Advance Directives Directive Y: Payers Encounter Date Sequence Insurance Name Policy Number Policy Stover Covered Member ID Stover Member ID Guarantor Name 08/22/2024 1 MEDICARE-[place] (MEDICARE) Ludivina Malik Sternurbanle [id number] Ludivina Helena Sternickle Notes Date Note Type Note Provider Name and Address Organization Details Recorded Time 08/22/2024 text/html The patient is a 74-year-old female with history of CAD, hyperlipidemia, resection of a right atrial myxoma, endometrial cancer, here today for follow-up. Results of her echocardiogram were discussed. She has been doing well. She denies any significant chest pain, shortness of breath, palpitations, dizziness, edema. 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 RV normal in size and function. No significant valvular stenosis/regurgitatio n?- Echocardiogram 08/26/22: EF 60%. Normal LV diastolic filling pattern. Low normal RV systolic function. Mild to moderate TR. No abnormal cardiac mass.?- Cardiac catheterization 03/06/20: Normal LM. 50% stenosis of the mid LAD. Minor luminal irregularities of the RCA. Baseline FFR 0.92 - dropped to 0.86 after IV adenosine.?- Lexiscan 02/21/20: Positive for reversible ischemia. Moderate size, moderate intensity, partially reversible defect involving the anterior/anterolatera l wall was noted which may represent ischemia with superimposed breast attenuation artifact. Reversibility mostly noted in the anterolateral wall. EF 76%. EKG portion negative?- Echocardiogram 02/21/20: EF 65-70%. Normal LV diastolic filling pattern. Normal RV systolic function. Left atrial volume index mildly increased. No abnormal cardiac mass noted.?- Lexiscan stress test 10/28/18: Negative for ischemia. EF 70%. EKG portion negative?- Echocardiogram 10/18/18: EF 60-65%. Mild to moderate TR?- Echocardiogram 04/09/2017: LV systolic function is normal. LVEF 60-65%. Right atrial volume index is increased. RV dilated. RV systolic function is borderline reduced. Trace MR. Mild TR. RVSP normal.?- [facility] 03/11/2017: Moderate LAD disease. Stephanie Pedroza, AIRCRAFT LAYOUT WORKER, SHANK PIECE TACKER [address] [place] [address], [phone], [place] [facility] 09/01/2024 16:33:53 OBGyn Episode No OBEpisode recorded.
== END 2024-10-10 09:58 | disposition home or self-care (01) ==
PROVIDERS: PCP Family Medicine; Visit Provider Nurse Practitioner
DX: R92.8 Other abnormal and inconclusive findings on diagnostic imaging of breast (principal); N63.10 Unspecified lump in the right breast, unspecified quadrant; N63.20 Unspecified lump in the left breast, unspecified quadrant
CPT/HCPCS: 77049; A9577; C8908

== ENCOUNTER 2024-10-24 08:22 | Outpatient (CLI) | payer MEDICARE, SELFPAY ==
--- NOTE | ~2024-10-24 | XR_ITS ---
Left foot Technique: AP, oblique, and lateral views were obtained. Clinical History: Pain Findings: No acute fracture or dislocation is seen. Osseous alignment is anatomic. Joint spaces are p reserved without erosive or degenerative change. Soft tissues are unremarkable. Impression: Unremarkable left foot radiographs. Reviewed, dictated and finalized at [facility]. OFFICE RECEPTIONIST Impression: Unremarkable left foot radiographs.
--- OUTSIDE RECORDS SUMMARY | 2024-10-24 08:32 | XMS_ITS | Data Portability ---
Author Organization [facility], [address] [facility] ([place]) Address [address] [address] Care Team Providers Care Shipping Team Leader Name Role Phone RANDI SEGAL Primary Care [...] Follow-up in 1 year. Earlier if needed. [email or web address] Not available 09/01/2024 16:33:03 Plan of Treatment [...] LastModifiedTime 08/17/20 24 08/15/2024 , echo tariq [facility] [address] [place] [address] Ph: www. [email or web address] [email or web address] Echoca rdiogr am Report Name: Ludviina OLIVIER Study Date: 2023 : 1949 75[birth year] Gender : Female Age: 74 yrs Height [...] - Sc Radiology [address], [place], [address], 08/17/2024 12:37:17 08/22/20 24 08/22/2024 elect rocar diogr am, routi ne ECG, 12 leads min No observ ation record ed. [email or web address] Sc Only - Sc Cardiology Ekg [address] [address], [place], [address], 08/22/2024 12:35:08 08/29/20 24 08/22/2024 elect rocar diogr am, routi ne ECG, 12 leads min No observ ation record ed. Sc Only - Sc Cardiology Ekg [address] [address], [place], [address], 08/31/2024 09:57:23 Result Notes None recorded. Problems Name Problem SNOMED Code Status Onset Date Resolution Date Notes Provider Name and Address Organization Details Recorded Time Coronary arterioscleros is 53479657 Active 2023 Ciara Villa [facility] 08:39:15 Hyperlipidemia 02088576 Active 2023 Stephanie Pedroza, CLINICAL REHABILITATION AIDE, NEW CAR INSPECTOR [address], [place], [address], [facility] 4 16:33:15 Benign essential hypertension 0600669 Active 2023 Stephaniehayes Pedroza APRN, NEW CAR INSPECTOR [address] [place] [address], [address], [facility] 4 16:33:19 Atrial myxoma 348279460 Active 2023 Stephaniehayes Pedroza APRN, NEW CAR INSPECTOR [address] [place] [address], [address], [facility] 4 16:33:36 Problem Notes None recorded. Procedures [...] Onl y - Sc Radiology [address] [place] [address], [address], 08/17/2024 12:37:17 08/22/2024 electrocardiogram, routine ECG, 12 leads min completed [address] Only - Sc Cardiology Ekg [address] [address], [place], [address], 08/22/2024 12:35:08 08/22/2024 electrocardiogram, routine ECG, 12 leads min completed [address] Only - Sc Cardiology Ekg [address] [address], [place], [address], 08/31/2024 09:57:23 Procedure Notes None recorded. Medical [...] t Available Vitals Date Recorded Heart rate Oxygen saturation Oxygen saturation in Arterial blood by Pulse oximetry Body weight Systolic blood pressure Diastolic blood pressure Provider Name and Address Organization Details Last Updated DateTime 4 76 /min 98 % 98 % 97152.7 4 g 142 mm[Hg] 70 mm[Hg] Elenita Clarkeby [facility] 4 10:33:51 Social History Question Answer Notes LastModified by Meshfire ion Details LastModified Time Tobacco Smoking Status [...] not available 08/13/2024 What Is Your Occupation? [place] [email or web address] Information not available 08/13/2024 How Many [...] available 2023 11:00:05 Medical History Condition Response High Blood Pressure N COPD N Depression N Anxiety Disorder N Arthritis N Cancer Y Stroke N Fibromyalgia N Kidney Disease N Bleeding Disorder N Asthma N Seizures N Attention-deficit Hyperactivity Disorder N Thyroid Problems Y Anemia N Diabetes N Hyperlipidemia N Heart Disease N Osteoporosis N Gynecological HistoryNo gynecological history recorded. Obstetrics History GPAL:G 0 P 0 0 0 0 Past Encounters Encounter ID Performer Location Encounter Start Date Encounter Closed Date Diagnosis/Indication Diagnosis SNOMED-CT Code Diagnosis ICD10 Code Diagnosis Note [id number] Stephanie Pedroza, CLINICAL REHABILITATION AIDE, NEW CAR INSPECTOR [address] ([place]) [address] [place] [address] 08/22/2024 10:22:58 08/22/2024 11:16:36 Coronary arteriosclerosis 83494023 I25.10 Hyperlipidemia 06929866 E78.5 Benign ess ential hypertension 9351390 I10 Atrial myxoma 748846631 D15.1 s/p resection Health Concerns Section Related Observation LastModified by Organization Detai ls LastModified Time None Recorded Concern Status LastModified by Organization Details LastModified Time None Recorded Advance Directives Directive Y: Payers Encounter Date Sequence Insurance Name Policy Number Policy Stover Covered Member ID Stover Member ID Guarantor Name 08/22/2024 1 [place] Ludivina E Sternickle [id number] Ludivina E Sternickle Notes Date Note Type Note Provider [...] rhythm, nonspecific ST & T wave abnormality Pertinent History: Atrial myxoma Status post resection of right atrial myxoma @ [facility] Hyperlipidemia Coronary artery disease 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 RV normal in size and function. No significant valvular stenosis/regurgitatio n - Echocardiogram 08/26/22: EF 60%. Normal LV diastolic filling pattern. Low normal RV systolic function. Mild to moderate TR. No abnormal cardiac mass. - Cardiac catheterization 03/06/20: Normal LM. 50% stenosis of the mid LAD. Minor luminal irregularities of the RCA. Baseline FFR 0.92 - dropped to 0.86 after IV adenosine. - Lexiscan 02/21/20: Positive for reversible ischemia. Moderate size, moderate intensity, partially reversible defect involving the anterior/anterolatera l wall was noted which may represent ischemia with superimposed breast attenuation artifact. Reversibility mostly noted in the anterolateral wall. EF 76%. EKG portion negative - Echocardiogram 02/21/20: EF 65-70%. Normal LV diastolic filling pattern. Normal RV systolic function. Left atrial volume index mildly increased. No abnormal cardiac mass noted. - Lexiscan stress test 10/28/18: Negative for ischemia. EF 70%. EKG portion negative - Echocardiogram 10/18/18: EF 60-65%. Mild to moderate TR - Echocardiogram 04/09/2017: LV systolic function is normal. LVEF 60-65%. Right atrial volume index is increased. RV dilated. RV systolic function is borderline reduced. Trace MR. Mild TR. RVSP normal. - [facility] 03/11/2017: Moderate LAD disease. Stephanie Pedroza, CLINICAL REHABILITATION AIDE, NEW CAR INSPECTOR [address] [place] [address], [phone], [place] - [facility] 09/01/2024 16:33:53 OBGyn Episode No OBEpisode recorded.
== END 2024-10-24 08:23 | disposition home or self-care (01) ==
PROVIDERS: PCP Family Medicine; Visit Provider Orthopaedic Surgery
DX: M79.672 Pain in left foot (principal)
CPT/HCPCS: 73630

== ENCOUNTER 2025-01-18 09:41 | Outpatient (CLI) | payer MEDICARE, SELFPAY ==
--- OUTSIDE RECORDS SUMMARY | 2025-01-18 10:17 | XMS_ITS | Data Portability ---
Author Organization [facility], [address] 4[address] Neurology ([place]) Address [address] [address] Care Team Providers Care Correction Officer Penit[facility] Name Role Phone RANDI SEGAL Primary Care Provider RANDI SEGAL Referring Provider [phone] Assessment Encounter Date Assessment Date Assessment LastModified [...] Follow-up in 1 year. Earlier if needed. [email or web address] Not available 09/01/2024 16:33:03 Plan of Treatment [...] LastModifiedTime 08/17/20 24 08/15/2024 , echo tariq [facility] [address] [place] [address] Ph: [phone] www. [email or web address] [email or web address] Adult Echoca rdiogr am Report Name: Ludivina OLIVIER Study Date: 2023 : 1949 2505 Gender : Female Age: 74 yrs Height [...] - Sc Radiology [address], [place], [address], 08/17/2024 12:37:17 08/22/20 24 08/22/2024 elect rocar diogr am, routi ne ECG, 12 leads min No observ ation record ed. [email or web address] Sc Only - Sc Cardiology Ekg [address] [address], [place], [address], 08/22/2024 12:35:08 08/29/20 24 08/22/2024 elect rocar diogr am, routi ne ECG, 12 leads min No observ ation record ed. Sc Only - Sc Cardiology Ekg [address] [address], [place], [address], 08/31/2024 09:57:23 01/08/20 25 08/26/2022 imagi ng/di agnos tic resul t No observ ation record ed. [email or web address] Not Available 02:20:47 Result Notes None recorded. Problems Name Problem SNOMED Code Status Onset Date Resolution Date Notes Provider Name and Address Organization Details Recorded Time Coronary arterioscleros is 74982389 Active 2023 Ciara Villa [facility] 10/24/202 4 08:39:15 Hyperlipidemia 98109691 Active 2023 Stephanie Pedroza APRN, DIETETICS TEACHER [address] [place] [address], [address], [facility] 4 16:33:15 Benign essential hypertension 0936802 Active 2023 Stephanie Pedroza APRN, DIETETICS TEACHER [address] [place] [address], [address], [place] [facility] 4 16:33:19 Atrial myxoma 949942957 Active 2023 Stephanie Pedroza APRN, DIETETICS TEACHER [address] [place] [address], [address], [facility] 4 16:33:36 Problem Notes None recorded. Procedures Surgical History Date Name Laterality Status Provider Name and Address Organization Details Recorded Time Colonoscopy with biopsy completed Not Available Health Note 08/13/2024 11:00:06 Total hysterectomy completed Not Available Health Note 08/13/2024 11:00:06 Imaging Results Imaging Date Name Status LastModified by Organization Details LastModified Time 08/15/2024 US, echocardiogram completed INTERFACE Sc Onl y - Sc Radiology [address] [place] [address], [address], 08/17/2024 12:37:17 08/22/2024 electrocardiogram, routine ECG, 12 leads min completed [address] Only - Sc Cardiology Ekg [address] [address], [place], [address], 08/22/2024 12:35:08 08/22/2024 electrocardiogram, routine ECG, 12 leads min completed [email or web address] Sc Only - Sc Cardiology Ekg [address] [address], [place], [address], 08/31/2024 09:57:23 08/26/2022 imaging/diagnostic result completed [email or web address] Information not available 01/07/2025 02:20:47 Procedure Notes None recorded. 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 Obstetrics History GPAL:G 0 P 0 0 0 0 Past Encounters Encounter ID Performer Location Encounter Start Date Encounter Closed Date Diagnosis/Indication Diagnosis SNOMED-CT Code Diagnosis ICD10 Code Diagnosis Note [id number] Stephanie Pedroza, SHOT TUBE MACHINE TENDER, DIETETICS TEACHER [address] [facility] [facility] ([place]) [address] [place] [address] 08/22/2024 10:22:58 08/22/2024 11:16:36 Coronary arteriosclerosis 61040322 I25.10 Hyperlipidemia 95281631 E78.5 Benign ess ential hypertension 6749327 I10 Atrial myxoma 359474153 D15.1 s/p resection Health Concerns Section Related Observation LastModified by Organization Detai ls LastModified Time None Recorded Concern Status LastModified by Organization Details LastModified Time None Recorded Advance Directives Directive Y: Payers Insurance Date Sequence Insurance Name Policy Number Policy Stover Covered Member ID Stover Member ID Guarantor Name 09/21/2024 2 [place] Ludivina E Sternickle [id number] Ludivina E Sternickle 08/17/2024 1 [place] Ludivina E Sternickle [id number] Ludivina E Sternickle 08/15/2024 2 AETNA PLAN G Ludivina E Sternickle [id number] Ludivina E Sternickle 08/20/2024 [employer] (MEDICARE SUPPLEMENT) PLAN G Ludivina E Sternickle [id number] Ludivina E Sternickle 09/13/2024 2 UNSPECIFIED REMIT PAYOR Ludivina E Sternickle Notes Date Note Type [...] post resection of right atrial myxoma @ [facility] Hyperlipidemia Coronary artery disease 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 Mild TR. RVSP normal. - [facility] 03/11/2017: Moderate LAD disease. Stephanie Pedroza, SHOT TUBE MACHINE TENDER, DIETETICS TEACHER [address] [place] [address], [phone], [facility] 09/01/2024 16:33:53 OBGyn Episode No OBEpisode recorded.
== END 2025-01-18 09:42 | disposition home or self-care (01) ==
LOC: CHSCARD 09:45
PROVIDERS: PCP Nurse Practitioner; Visit Provider Nurse Practitioner
DX: R06.02 Shortness of breath (principal); R94.2 Abnormal results of pulmonary function studies
CPT/HCPCS: 94070; 94729; J7674

== ENCOUNTER 2025-01-24 15:54 | Outpatient (CLI) | payer MEDICARE, SELFPAY ==
--- OUTSIDE RECORDS SUMMARY | 2025-01-24 15:57 | XMS_ITS | Data Portability ---
Author Organization [facility], [address] Neurology ([place]) Address [address] [address] Care Team Providers Care Patient Registrar Name Role Phone RANDI SEGAL Primary Care [...] Follow-up in 1 year. Earlier if needed. [email or web address] Not available 09/01/2024 16:33:03 Plan of Treatment [...] LastModifiedTime 08/17/20 24 08/15/2024 , echo tariq [facility] [address] [place] [address] Ph: [phone] www. [email or web address] [email or web address] Adult Echoca rdiogr am Report Name: Ludivina OLIVIER Study Date: 2023 : 1949 0653 Gender : Female Age: 74 yrs Height [...] - Sc Radiology [address], [place], [address], 08/17/2024 12:37:17 08/22/20 24 08/22/2024 elect rocar diogr am, routi ne ECG, 12 leads min No observ ation record ed. Sc Only - Sc Cardiology Ekg [address] [address], [place], [address], 08/22/2024 12:35:08 08/29/20 24 08/22/2024 elect rocar diogr am, routi ne ECG, 12 leads min No observ ation record ed. [email or web address] Sc Only - Sc Cardiology Ekg [address] [address], [place], [address], 08/31/2024 09:57:23 01/08/20 25 08/26/2022 imagi ng/di agnos tic resul t No observ ation record ed. [email or web address] Not Available 02:20:47 Result Notes None recorded. Problems Name Problem SNOMED Code Status Onset Date Resolution Date Notes Provider Name and Address Organization Details Recorded Time Coronary arterioscleros is 61642895 Active 2023 Ciara Villa [facility] 10/24/202 4 08:39:15 Hyperlipidemia 00159006 Active 2023 Stephanie Pedroza APRN, JOURNAL CLERK [address] [place] [address], [address], [facility] 4 16:33:15 Benign essential hypertension 9447615 Active 2023 Stephanie Pedroza APRN, JOURNAL CLERK [address] [place] [address], [address], [place] [facility] 4 16:33:19 Atrial myxoma 185291435 Active 2023 Stephanie Pedroza APRN, JOURNAL CLERK [address] [place] [address], [address], [facility] 4 16:33:36 Problem Notes None recorded. [...] Onl y - Sc Radiology [address] [place] [address], [address], 08/17/2024 12:37:17 08/22/2024 electrocardiogram, routine ECG, 12 leads min completed [address] Only - Sc Cardiology Ekg [address] [address], [place], [address], 08/22/2024 12:35:08 08/22/2024 electrocardiogram, routine ECG, 12 leads min completed Sc Only - Sc Cardiology Ekg [address] [address], [place], [address], 08/31/2024 09:57:23 08/26/2022 imaging/diagnostic result completed [email or web address] [...] 4 76 /min 98 % 98 % 64186.7 4 g 142 mm[Hg] 70 mm[Hg] Elenita Green [facility] 4 10:33:51 Social History Question Answer Notes LastModified by [employer] Details LastModified Time Tobacco Smoking Status Never Smoker Not Available Health Note 08/13/2024 11:00:07 Do You Have An Advance Directive? Yes [email or web address] Information not available 08/13/2024 What Is Your Level Of Caffeine Consumption? Moderate [email or web address] Information not available 08/13/2024 What Is Your Code Status? Full Code [email or web address] Information not available 08/13/2024 How Many Times Per Week Do You Exercise? 1-2 Times Per Week [email or web address] Information not available 08/13/2024 What Was The Date Of Your Most Recent Tobacco Screening? 08/15/2024 [email or web address] Information not available 08/13/2024 What Is Your Relationship Status? [email or web address] Information not available 08/13/2024 Sex: Unknown Functional Status Question Answer Note LastModified by [employer] Details LastModified Time Do you use any illicit or recreational drugs? No [email or web address] Information not available 08/13/2024 What is your level of alcohol consumption? None [email or web address] Information not available 08/13/2024 Are you currently employed? 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 Occasional [email or web address] [...] SNOMED-CT Code Diagnosis ICD10 Code Diagnosis Note [id number] Stephanie Pedroza, PARTS WASHER, JOURNAL CLERK [address] [facility]olog y ([place]) [address] [place] [address] 08/22/2024 10:22:58 08/22/2024 11:16:36 Coronary arteriosclerosis 40325560 I25.10 Hyperlipidemia 54600271 E78.5 Benign ess ential hypertension 7954547 I10 Atrial myxoma 737918448 D15.1 s/p resection Health Concerns Section Related Observation LastModified by Organization Detai ls LastModified Time None Recorded Concern Status LastModified by Organization Details LastModified Time None Recorded Advance Directives Directive Y: Payers Insurance Date Sequence Insurance Name Policy Number Policy Stover Covered Member ID Stover Member ID Guarantor Name 09/21/2024 2 [place] Ludivina E Sternickle [id number] Ludivina E Sternickle 08/17/2024 1 [place] Ludivina E Sternickle [id number] Ludivina E Sternickle 08/15/2024 2 AETNA PLAN G Ludivina E Sternickle [id number] Ludivina E Sternickle 08/20/2024 [employer] (MEDICARE SUPPLEMENT) PLAN G Ludivina E Sternickle [id number] Ludivina E Sternickle 09/13/2024 2 UNSPECIFIED [...] resection of right atrial myxoma @ 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 Mild TR. RVSP normal. - [facility] 03/11/2017: Moderate LAD disease. Stephanie Pedroza, PARTS WASHER, JOURNAL CLERK [address] [place] [address], [phone], [facility] 09/01/2024 16:33:53 OBGyn Episode No OBEpisode recorded.
--- NOTE | 2025-01-24 16:00 | ECHO_ITS ---
Patient Info Name: Ludivina Townsend Age: 74 years : 1950 Gender: Female Ht: 63 in Wt: 190 lbs BSA: 1.99 m2 HR: 69 bpm BP: 160 / 60 mmHg Heart Rhythm: Sinus Rhythm Technical Quality: Fair Exam Date: 01/24/2025 4:12 PM Patient Status: unknown Admit Date: 01/24/2025 Exam Type: CA echo doppler color flow Study Info Indications SOB - Complete two-dimensional, color flow and Doppler transthoracic echocardiogram is performed. Staff Referring Physician: Jerome Enrique Conversion Developer: Leona Barajas Attending Provider: Elly Benjamin Summary 1. Complete two-dimensional, color flow and Doppler transthoracic echocardiogram is performed. 2. Left ventricular chamber dimension is normal. 3. Left ventricular systolic function is normal, estimated at 60-65. 4. The left ventricular diastolic function is grade I diastolic dysfunction. 5. E/e' 9 is minimally elevated. 6. There is trace tricuspid valve regurgitation. 7. No pulmonary hypertension, estimated pulmonary arterial systolic pressure is 31 mmHg. 8. There is trace pulmonic regurgitation. Left Ventricle E/e' 9 is minimally elevated. Left ventricular chamber dimension is normal. Left ventricular systolic function is normal, estimated at 60-65. The left ventricular diastolic function is grade I diastolic dysfunction. Right Ventricle Right ventricular chamber dimension is normal. Right ventricular systolic function is normal and with normal TAPSE 2.0 cm. Left Atria Left atrial chamber dimension is normal. Right Atria Right atrial chamber dimension is normal. Aortic Valve The aortic valve is trileaflet. There is no aortic valve stenosis. There is no aortic valve regurgitation. Pulmonic Valve There is trace pulmonic regurgitation. Mitral Valve There is no mitral valve stenosis. There is no mitral valve regurgitation. Tricuspid Valve There is trace tricuspid valve regurgitation. No pulmonary hypertension, estimated pulmonary arterial systolic pressure is 31 mmHg. Pericardium/Pleural There is no pericardial effusion. Inferior Vena Cava Normal inferior vena cava with >50% collapse upon inspiration consistent with normal right atrial pressure, 5 mmHg. Aorta The aortic root size at the sinus of Valsalva is normal. Left Ventricular Outflow Tract Name Value Normal LVOT 2D LVOT Diameter 2.0 cm LVOT Doppler LVOT Peak Velocity 98 cm/s LVOT Peak Gradient 4 mmHg LVOT Mean Gradient 2 mmHg LVOT VTI 21 cm LVOT VTI/AV VTI Ratio 0.6 LVOT Stroke Volume 69 ml LVOT CO 4.7 l/min LVOT CI 2.4 l/min/m2 Pulmonic Valve Name Value Normal RVOT Doppler RVOT Peak Velocity 64 cm/s RVOT Peak Gradient 2 mmHg PV Doppler PV Peak Velocity 90 cm/s PV Peak Gradient 3 mmHg Mitral Valve Name Value Normal MV Diastolic Function MV E Peak Velocity 74 cm/s MV A Peak Velocity 95 cm/s MV E/A 0.8 MV Decel Time (PW) 188 ms MV Annular TDI MV E/e' (Septal) 11.6 MV E/e' (Lateral) 8.6 MV E/e' (Average) 10.1 Tricuspid Valve Name Value Normal TV Regurgitation Doppler TR Peak Velocity 255 cm/s TR Peak Gradient 26 mmHg Estimated PAP/RSVP RA Pressure 5 mmHg <=5 PA Systolic Pressure 31 mmHg <36 RV Systolic Pressure 31 mmHg <36 TV Annular TDI TV Lateral Syl s' Velocity 10.3 cm/s >=9.5 Aortic Valve Name Value Normal AV Doppler AV Peak Velocity 150 cm/s AV Peak Gradient 9 mmHg AV Mean Gradient 5 mmHg AV VTI 34 cm AV Area (Cont Eq VTI) 2.0 cm2 >=3.0 AV Area (Cont Eq Ramy) 2.1 cm2 AV DI (Ramy) 0.65 AV Regurgitation 2D LVOT Area 3.3 cm2 Ventricles Name Value Normal LV Dimensions 2D/MM IVS Diastolic Thickness (2D) 1.0 cm 0.6-1.0 LVID Diastole (2D) 5.1 cm 3.8-5.2 LVIW Diastolic Thickness (2D) 1.0 cm 0.6-0.9 LVID Systole (2D) 3.6 cm 2.2-3.5 LVOT Diameter 2.0 cm LV Mass (2D Cubed) 197.07 g 67.00-162.00 LV Mass Index (2D Cubed) 99 g/m2 43-95 Relative Wall Thickness (2D) 0.40 <=0.42 LV Fractional Shortening/Ejection Fraction 2D/MM LV Fractional Shortening (2D) 30 % 27-45 LV EF (2D Teichholz) 57 % LV Diastolic Volume (4C MOD) 102 ml LV EF (4C MOD) 62 % LV Diastolic Volume (2C MOD) 113 ml LV EF (2C MOD) 76 % LV Diastolic Volume (BP MOD) 108 ml 46-106 LV Diastolic Volume Index (BP MOD) 54 ml/m2 29-61 LV Systolic Volume (BP MOD) 34 ml 14-42 LV Systolic Volume Index (BP MOD) 17 ml/m2 8-24 LV EF (BP MOD) 68 % 54-74 LV Diastolic Length (4C) 8.4 cm LV Systolic Length (4C) 7.5 cm LV Stroke Volume (4C MOD) 63 ml Atria Name Value Normal LA Dimensions LA Volume (4C A-L) 60 ml LA Volume (BP A-L) 60 ml RA Dimensions RA Systolic Major [place] Length (4C) 5.8 cm 2.2-2.8 RA Area (4C) 19.1 cm2 <=18.0 Report Signatures
== END 2025-01-24 15:55 | disposition home or self-care (01) ==
PROVIDERS: PCP Nurse Practitioner; Visit Provider Nurse Practitioner
DX: R06.02 Shortness of breath (principal); I50.30 Unspecified diastolic (congestive) heart failure
CPT/HCPCS: 93306

== ENCOUNTER 2025-05-22 09:39 | Outpatient (CLI) | payer MEDICARE, SELFPAY ==
--- NOTE | ~2025-05-22 | DEXA_ITS ---
Bone Density Report Name: FAUSTO PACHECO Age: 74 Sex: Female Ethnicity: White Date of : 1950 Indication: postmenopausal; screening for osteoporosis; height loss; cancer; hysterectomy; Referring Provider: ANDERS DICKENS Study: Bone densitometry was performed. Exam Date: May 22, 2025 Accession number: [id number] Bone Density: Region BMD T-score Z-score Classification AP Spine(L1-L4) 1.023 -0.2 2.2 Normal Femoral Neck (Left) 0.664 -1.7 0.4 Osteopenia Total Hip (Left) 0.886 -0.5 1.3 Normal Femoral Neck (Right) 0.660 -1.7 0.4 Osteopenia Total Hip (Right) 0.860 -0.7 1.1 Normal Total Hip Mean 0.873 -0.6 1.2 Normal World Health Organization criteria for BMD impression classify patients as: Normal (T-score at or above -1.0), Osteopenia (T-score between -1.0 and -2.5), or Osteoporosis (T-score at or below -2.5). 10-year Fracture Risk(1): Major Osteoporotic Fracture 11% Hip Fracture 2.2% Reported Risk Factors: [place] (), Neck BMD=0.664, BMI=32.5 (1) FRAX(R) Version 3.08. Fracture probability calculated for an untreated patient. Fracture probability may be lower if the patient has received treatment. Clinical Information Provided by Patient: Has used the following medications: Vitamin D, Calcium Has the following medical conditions: Cancer, Hysterectomy Patient maximum height was 67.0 No regular weight bearing exercise Does not regularly consume dairy products Drinks caffeinated beverages Onset of menses at age 13 Number of children 2 Impression: The patient has low bone mass, based on the Left Femoral Neck T-score. The patient has an estimated ten-year risk of hip fracture of 2.2% and an estimated ten-year risk of major fracture of 11%, based on the WHO FRAX algorithm. Discussion: BONE DENSITY IS LOW AT ONE OR MORE SKELETAL SITES. This patient's lowest T-score is low at one or more skeletal sites. It meets the World Health Organization's (WHO) criteria for ?low bone mass? (T-score between -1.0 and -2.5). The patient's 10-year risk of fracture as calculated by FRAX is less than the threshold where pharmacological therapy is recommended by the National Osteoporosis Foundation (NOF). However, all treatment decisions require clinical judgment and consideration of individual patient factors, including patient preferences, comorbidities, previous drug use, risk factors not captured in the FRAX model (e.g., frailty, falls, vitamin D deficiency, increased bone turnover, interval significant decline in bone density) and possible under or overestimation of fracture risk by FRAX. The patient should follow a healthful lifestyle (good nutrition with adequate calcium and vitamin D, and appropriate weight-bearing exercise). Follow-Up: Consider repeating this study in 2 to 3 years to reassess this patient's status, or sooner if there is some new clinical indication. Reported by: DANNA on 05/22/2025 11:06:00 AM. Reviewed, dictated and finalized at location A.
--- OUTSIDE RECORDS SUMMARY | 2025-05-22 09:58 | XMS_ITS | Clinical Summary ---
Author Organization [facility] Tadeo dami Tomasz Address [address] [place] [address] Care Team Providers Care Card Lacer Name Role Phone Unavailable Primary Care Provider Unavailabl e Allergies No known active allergies Medications aspirin (ECOTRIN EC) 81 mg Tablet, Delayed Release (E.C.) Take 81 mg by mouth. Active atorvastatin (LIPITOR) 20 mg tablet Take 20 mg by mouth daily. 04/06/2025 Active calcium carbonate-vitam in D3 500 mg-15 mcg (600 unit) Tablet Take by mouth daily at bedtime. Active levothyroxine 125 mcg tablet Take 1 Tablet by mouth daily. 03/17/2025 Active metoprolol tartrate (LOPRESSOR) 25 mg tablet Take 0.5 Tablets by mouth 2 times daily. 03/04/2025 Active pantoprazole (PROTONIX) 20 mg Tablet, Delayed Release (E.C.) Take 1 Tablet by mouth daily. 02/17/2025 Active VITAMIN B COMPLEX ORAL Take 1 Capsule by mouth. Active vitamin K2 40 mcg Tablet Take 40 mcg by mouth. Active Active Problems No known active problems Encounters Date Type Department Care Team Description 04/25/2025 External Device Data STL ABSTRACTION Provider, Abstract 04/25/2025 External Device Data STL ABSTRACTION Provider, Abstract 04/25/2025 External Device Data STL ABSTRACTION Provider, Abstract 04/18/2025 9:00 AM CDT Office Visit [facility] Oncology and Hematology - [place] [address] [place] [address] Christos Douglas MD Malignant neoplasm of upper-outer quadrant of right breast in female, estrogen receptor positive (CMS/HCC) (Primary Dx); Osteopenia of multiple sites from Last 3 Months Family History Medical History Relation Name Comments Heart Disease Brother 1 Heart Disease Brother 2 No Known Problems Child 1 No Known Problems Child 2 Leukemia Father Diabetes Mother Heart Disease Mother Stomach Cancer Mother Uterine Cancer Mother Heart Disease Sister 1 Breast Cancer Sister 2 Uterine or Endometrial Cancer, Not Including Cervical Sister 2 Breast Cancer Sister 3 Diabetes Sister 3 Uterine or Endometrial Cancer, Not Including Cervical Sister 3 Relation Name Status Comments Brother 1 Brother 2 Child 1 Alive Child 2 Alive Father Mother Sister 1 Sister 2 Alive Sister 3 Alive Social History Tobacco Use Types Packs/Day Years Used Date Smoking Tobacco: Never Smokeless Tobacco: Never Tobacco Cessation:Counseling Given: Not Answered Alcohol Use Standard Drinks/Week Comments Never 0 (1 standard drink = 0.6 oz pur e alcohol) Comments Unknown Sex and Gender Information Value Date Recorded Sex Assigned at Not on file Legal Sex Female 3:33 PM CDT Gender Identity Not on file Sexual Orientation Not on file Last Filed Vital Signs Vital Sign Reading Time Taken Comments Blood Pressure 140/79 04/18/2025 8:58 AM CDT Pulse 57 04/18/2025 8:58 AM CDT Temperature 36.3 C (97.4 F) 04/18/2025 8:58 AM CDT Respiratory Rate 15 04/18/2025 8:58 AM CDT Oxygen Saturation 96% 04/18/2025 8:58 AM CDT Inhaled Oxygen Concentration - - Weight 88.3 kg (194 lb 9.6 oz) 04/18/2025 8:58 A M CDT Height 162.6 cm (5' 4) 04/18/2025 8:58 AM CDT Body Mass Index 33.4 04/18/2025 8:58 AM CDT Plan of Treatment Upcoming Encounters Date Type Department Care Team (Late st Contact Info) Description 06/01/2025 11:30 AM CDT Office Visit [facility] Oncology and Hematology - [place] [address] [place] [address] Christos Douglas MD [address] [facility] [address] [place] [address] Health Maintenance Due Date Last Done Comments DTAP/TDAP/TD VACCINES (1 - Tdap) 1969 COLORECTAL SCREENING 1995 Colorectal Cancer Screening 1995 FIT-DNA Q 3 years 1995 FIT/FOBT Q 1 year 1995 Flex Sig/CT Colonography Q 5 years 1995 ZOSTER VACCINE (1 of 2) 2000 OSTEOPOROSIS SCREENING 2015 INFLUENZA VACCINE (#1) 2025 , 06/08/2018, 05/27/2017 RSV VACCINE (60+ or ) (1 - 1-dose 75+ series) 2025 BREAST CANCER SCREENING 12/26/2025 12/26/2024 PNEUMOCOCCAL VACCINE 50+ YEARS Completed 11/17/2018 , 10/07/2017 Insurance MEDICARE PART A AND B [facility]
== END 2025-05-22 09:40 | disposition home or self-care (01) ==
LOC: ANHFOHIMG 09:41
PROVIDERS: PCP Nurse Practitioner; Visit Provider Internal Medicine Hematology & Oncology
DX: M85.852 Other specified disorders of bone density and structure, left thigh (principal); M85.851 Other specified disorders of bone density and structure, right thigh
CPT/HCPCS: 77080

== ENCOUNTER 2025-05-26 07:58 | Outpatient (CLI) | payer MEDICARE, SELFPAY ==
--- OUTSIDE RECORDS SUMMARY | 2025-05-26 08:07 | XMS_ITS | Encounter Summary ---
Author Organization [facility] [email or web address] [facility] Address [address] [place] [address] Care Team Providers Care Manager Utility Name Role Phone Unavailable Primary Care Provider Unavailabl e Encounter Details Date Type Department Care Team ([facility] Contact Info) Description 05/23/2025 Orders Only [facility] Oncology [facility] Hematology [facility] [address] [place] [address] Christos Douglas MD [address] [place], [place] [address] [address] [place] [address] Social History Tobacco Use Types Packs/Day Years Used Date Smoking Tobacco: Never Smokeless Tobacco: Never Alcohol Use Standard Drinks/Week Comments Never 0 (1 standard drink = 0.6 oz pur e alcohol) Comments Unknown Sex and Gender Information Value Date Recorded Sex Assigned at Not on file Legal Sex Female 3:33 PM CDT Gender Identity Not on file Sexual Orientation Not on file documented as of this encounter Plan of Treatment Upcoming Encounters Date Type Department Care Team ([facility] Contact Info) Description 06/01/2025 11:30 AM CDT Office Visit [facility] Oncology and Hematology S[address] [place] [address] [place] [address] [place], [place] [address] [address] [place] [address] documented as of this encounter Procedures Procedure Name Priority Date/Time Associated Diagnosis Comments NM BONE DENSITY Routine 05/22/2025 7:45 AM CDT documented in this encounter Results * NM BONE DENSITY (05/22/2025 7:45 AM CDT) Anatomical Region Laterality Modality Nuclear Medicine Christos Douglas MD NM ORDERABLES Final Result documented in this encounter Visit Diagnoses Not on filedocumented in this encounter
--- OUTSIDE RECORDS SUMMARY | 2025-05-26 08:07 | XMS_ITS | Clinical Summary ---
Author Organization [facility] Tadeo Soto Address [address] [place] [address] Care Team Providers Care Rack Pusher Name Role Phone Unavailable Primary Care Provider [...] Encounters Date Type Department Care Team Description 05/23/2025 Orders Only [facility] Oncology and Hematology - [place] [address] [place] [address] Christos Douglas MD 04/25/2025 External Device Data STL ABSTRACTION Provider, Abstract 04/25/2025 External Device Data STL ABSTRACTION Provider, Abstract 04/25/2025 External Device Data STL ABSTRACTION Provider, Abstract 04/18/2025 9:00 AM CDT Office Visit [facility] Oncology and Hematology - [place] [address] [place] [address] Christos Douglas MD Malignant neoplasm of upper-outer [...] Description 06/01/2025 11:30 AM CDT Office Visit [facility] Oncology and Hematology - [place] [address] [place] [address] Christos Douglas MD [address] [facility] [address] [place] [address] Health Maintenance Due Date Last Done Comments DTAP/TDAP/TD VACCINES (1 - Tdap) 1969 Traditional Medicare (ACO) A nnual Wellness Visit 1969 COLORECTAL SCREENING 1995 Colorectal Cancer Screening [...] VACCINE 50+ YEARS Completed 11/17/2018 , 10/07/2017 Procedures Procedure Name Priority Date/Time Associated Diagnosis Comments NM BONE DENSITY Routine 05/22/2025 7:45 AM CDT from Last 3 Months Results * NM BONE DENSITY (05/22/2025 7:45 AM CDT) Anatomical Region Laterality Modality Nuclear Medicine Christos Douglas MD NM ORDERABLES Final Result from Last 3 Months Insurance MEDICARE PART A AND B BCBS SUPP
[2025-05-26 08:15] LABS: Hematocrit 41.0 % (35.0-42.0); Hemoglobin 13.3 g/dL (11.7-13.8); Immature Granulocyte Percent A 0.7 % (0.0-0.0); Lymphocytes Absolute Auto 0.83 K/mm3 (1.10-4.50); Mean Corpuscular HGB Conc 32.4 g/dL (32-36); Mean Corpuscular Hemoglobin 28.7 pg (27.0-31.0); Mean Corpuscular Volume 88.6 fL (78.0-102.0); Nucleated Red Blood Cells Absolute Auto 0.00 K/mm3 (0.00-0.00); Nucleated Red Blood Cells Perc 0.0 % (0-0.0); Platelet Count Result 232 K/mm3 (150-420); Red Blood Count 4.63 M/mm3 (4.20-5.40); White Blood Count 5.8 K/mm3 (4.8-10.8)
[2025-05-26 08:58] LABS: Alanine Aminotransferase 28 U/L (6-35); Albumin Level 4.4 g/dL (3.5-5.1); Alkaline Phosphatase 104 U/L (38-126); Anion Gap 8 mmol/L (4-12); Aspartate Amino Transferase 25 U/L (14-36); Bilirubin,Total 1.0 mg/dL (0.2-1.3); Blood Urea Nitrogen 16 mg/dL (7-17); Calcium 9.9 mg/dL (8.4-10.2); Carbon Dioxide 29 mmol/L (22-30); Chloride 103 mmol/L (98-107); Estimated Glomerular Filt Rate > 60; Glucose 113 mg/dL (65-110); Osmolality Calculated 292 mOsm/kg (285-295); Potassium 5.3 mmol/L (3.4-5.0); Sodium 140 mmol/L (137-145); Total Protein 6.9 g/dL (6.3-8.2)
== END 2025-05-26 07:59 | disposition home or self-care (01) ==
PROVIDERS: PCP Nurse Practitioner; Visit Provider Internal Medicine Hematology & Oncology
DX: E11.69 Type 2 diabetes mellitus with other specified complication (principal); E78.5 Hyperlipidemia, unspecified; C50.411 Malignant neoplasm of upper-outer quadrant of right female breast; Z17.0 Estrogen receptor positive status [ER+]
CPT/HCPCS: 36415; 80053; 85025; 86300

== ENCOUNTER 2025-07-13 13:57 | Outpatient (CLI) | payer MEDICARE, SELFPAY ==
--- NOTE | ~2025-07-13 | CT_ITS ---
CT abdomen wo con INDICATION:K43.2 - Incisional hernia without obstruction or gangrene K43.2 - Incisional hernia without obstruction or gangrene COMPARISON: None. TECHNIQUE: Axial 2.5 mm images of the abdomen were obtained without IV or oral contrast. Diagnostic sensitivity is limited due to lack of oral and IV contrast. FINDINGS: The lung bases are clear. Mild fatty infiltration of the liver is noted. No intrahepatic mass or ductal dilatation is evident. The gallbladder is unremarkable. The pancreas and spleen are normal in appearance. The adrenal glands are symmetric in size. The kidneys are unremarkable. No intrarenal stones are noted. There is no hydronephrosis. Evaluation of the stomach and bowel loops are limited due to lack of oral contrast. There are no bowel obstruction or acute appendicitis. There fat- containing ventral wall hernias. No free intraperitoneal fluid or air is evident. There is no significant retroperitoneal lymphadenopathy. The aorta demonstrates normal caliber. The lower thoracic and upper lumbar vertebrae are in normal alignment. IMPRESSION: No acute abnormality is noted in the abdomen. Fat-containing ventral wall hernias. Mild hepatic steatosis. All CT scans at this facility are performed using low dose modulation techniques as appropriate to perform exam including the following: automated exposure control; use of iterative reconstruction technique; adjustment of the mA and/or kV according to patient size (this includes techniques or standardized protocols for targeted exams where dose is matched to indication/reason for exam). Reviewed, dictated and finalized at location S. IMPRESSION: No acute abnormality is noted in the abdomen. Fat-containing ventral wall hernias. Mild hepatic steatosis. All CT scans at this facility are performed using low dose modulation techniqu es as appropriate to perform exam including the following: automated exposure c ontrol; use of iterative reconstruction technique; adjustment of the mA and/or kV according to patient size (this includes techniques or standardized protocol s for targeted exams where dose is matched to indication/reason for exam).
--- OUTSIDE RECORDS SUMMARY | 2025-07-13 14:34 | XMS_ITS | Clinical Summary ---
Author Organization [facility] Tadeo Soto Address [address] [place] [address] Care Team Providers Care First Cook Name Role Phone Bebo Oliveros MD Primary Care Provider Allergies No known active allergies Medications aspirin [...] Tablet Take 40 mcg by mouth. Active tamoxifen (NOLVADEX) 20 mg tablet Take 1 Tablet (20 mg) by mouth daily. 90 Tablet 5 06/01/2025 Active Active Problems No known active problems Encounters Date Type Department Care Team Description 07/05/2025 External Device Data STL ABSTRACTION Provider, Abstract 07/04/2025 External Device Data STL ABSTRACTION Provider, Abstract 06/01/2025 11:30 AM CDT Office Visit [facility] Oncology and Hematology - [place] [address] [place] [address] Christos Douglas MD Malignant neoplasm of upper-outer quadrant of right breast in female, estrogen receptor positive (CMS/HCC) (Primary Dx) 05/30/2025 External Device Data STL ABSTRACTION Provider, Abstract 05/30/2025 External Device Data STL ABSTRACTION Provider, Abstract 05/29/2025 Orders Only [facility] Oncology and Hematology [address] [place] [address] Christos Douglas MD 05/26/2025 Orders Only [facility] Oncology and Hematology - [place] [address] [place] [address] Christos Douglas MD 05/23/2025 Orders Only [facility] Oncology and Hematology - [place] [address] [place] [address] Christos Douglas MD 04/25/2025 External Device Data STL ABSTRACTION Provider, Abstract 04/25/2025 External Device Data STL ABSTRACTION Provider, Abstract 04/25/2025 External Device Data STL ABSTRACTION Provider, Abstract 04/18/2025 9:00 AM CDT Office Visit [facility] Oncology and Hematology [facility] [address] [place] [address] Christos Douglas MD Malignant neoplasm of upper-outer [...] Sign Reading Time Taken Comments Blood Pressure 135/79 06/01/2025 11:20 AM CDT Pulse 75 06/01/2025 11:20 AM CDT Temperature 36.2 C (97.2 F) 06/01/2025 11:20 AM CDT Respiratory Rate 15 06/01/2025 11:20 AM CDT Oxygen Saturation 96% 06/01/2025 11:20 AM CDT Inhaled Oxygen Concentration - - Weight 89 kg (196 lb 3.2 oz) 06/01/2025 11:20 AM CDT Height 162.6 cm (5' 4) 04/18/2025 8:58 AM CDT Body Mass Index 33.68 04/18/2025 8:58 AM CDT Plan of Treatment Upcoming Encounters Date Type Department Care Team (Late st Contact Info) Description 08/31/2025 2:00 PM REGIONAL OFFICE COORDINATOR Office Visit [facility] Oncology and Hematology - [place] [address] [place] [address] [facility] [address] [place] [address] Christos Douglas MD [address] [facility] [address] [place] [address] Health Maintenance Due Date Last Done Comments DTAP/TDAP/TD VACCINES (1 - Tdap) 1969 COLORECTAL SCREENING 1995 Colorectal Cancer Screening 1995 FIT-DNA Q 3 years 1995 FIT/FOBT Q 1 year 1995 Flex Sig/CT Colonography Q 5 years 1995 ZOSTER VACCINE (1 of 2) 2000 OSTEOPOROSIS SCREENING 2015 INFLUENZA VACCINE (#1) 2025 , 06/20/2023, 07/08/2022, Additional history exists COVID-19 Vaccine (4 - 2024-2 6 season) 2025 10/07/2021, 12/21/2020, 11/21/2020 RSV VACCINE (60+ or ) (1 - 1-dose 75+ series) 2025 PNEUMOCOCCAL VACCINE 50+ YEARS Completed 11/17/2018 , 10/07/2017 Procedures Procedure Name Priority Date/Time Associated Diagnosis Comments CHG CA 15 3 Routine 05/26/2025 1:08 PM CDT COMPREHENSIVE METABOLIC PANEL Routine 05/26/2025 12:04 PM CDT CBC WITH AUTODIFFERENTIAL Routine 2024 11:45 AM CDT NM BONE DENSITY Routine 05/22/2025 7:45 AM CDT from Last 3 Months Results * CHG CA 15 3 (05/26/2025 1:08 PM CDT) us Christos Douglas MD CHG - LABORATORY Final Result * COMPREHENSIVE METABOLIC PANEL (05/26/2025 12:04 PM CDT) Blood us Christos Douglas MD CHEMISTRY ORDERABLES Final Resu lt * CBC WITH AUTODIFFERENTIAL (05/26/2025 11:45 AM CDT) Blood us Christos Douglas MD HEMATOLOGY ORDERABLES Final Res ult * NM BONE DENSITY (05/22/2025 7:45 AM CDT) Anatomical Region Laterality Modality Nuclear Medicine us Christos Douglas MD NM ORDERABLES Final Result from Last 3 Months Insurance MEDICARE PART A AND B BCBS SUPP Care Teams First Cook Relationship Specialty [place] [address] [place] [address] PCP - General Family Practice 06/01/25
== END 2025-07-13 13:58 | disposition home or self-care (01) ==
LOC: ANHIMG 13:58
PROVIDERS: PCP Nurse Practitioner; Visit Provider Surgery
DX: K43.2 Incisional hernia without obstruction or gangrene (principal); K76.0 Fatty (change of) liver, not elsewhere classified
CPT/HCPCS: 74150

== ENCOUNTER 2025-07-17 14:52 | Outpatient (CLI) | payer MEDICARE, SELFPAY ==
--- NOTE | 2025-07-17 14:59 | ECG_ITS ---
Test Date: 2025-07-17 15:07:08 Measurements Intervals [place] Rate: 62 P: 64 CA: 217 QRS: 37 QRSD: 102 T: 63 QT: 434 QTc: 443 Interpretive Statements SINUS RHYTHM WITH FIRST DEGREE AV BLOCK No previous ECG available for comparison Electronically Signed On 07-17-2025 18:48:10 [employer]D MILL OPERATOR by Keo Gaspar M.D.
--- OUTSIDE RECORDS SUMMARY | 2025-07-17 15:15 | XMS_ITS | Clinical Summary ---
Author Organization [facility] Tadeo Soto Address [address] [place] [address] Care Team Providers Care Commutator Assembler Name Role Phone Bebo Oliveros MD Primary Care Provider [phone] Allergies No known active allergies Medications aspirin [...] Abstract 06/01/2025 11:30 AM CDT Office Visit [facility] Oncology and Hematology - [place] [address] [place] [address] Christos Douglas MD Malignant neoplasm of upper-outer quadrant of right breast in female, estrogen receptor positive (CMS/HCC) (Primary Dx) 05/30/2025 External Device Data STL ABSTRACTION Provider, Abstract 05/30/2025 External Device Data STL ABSTRACTION Provider, Abstract 05/29/2025 Orders Only [facility] Oncology and Hematology [address] [place] [address] Christos Douglas MD 05/26/2025 Orders Only [facility] Oncology and Hematology - [place] [address] [place] [address] Christos Douglas MD 05/23/2025 Orders Only [facility] Oncology and Hematology - [place] [address] [place] [address] Christos Douglas MD 04/25/2025 External Device Data STL ABSTRACTION Provider, Abstract 04/25/2025 External Device Data STL ABSTRACTION Provider, Abstract 04/25/2025 External Device Data STL ABSTRACTION Provider, Abstract 04/18/2025 9:00 AM CDT Office Visit [facility] Oncology and Hematology [facility] [address] [place] [address] Christos Douglas MD Malignant neoplasm of upper-outer [...] st Contact Info) Description 08/31/2025 2:00 PM QC TECH Office Visit [facility] Oncology and Hematology - [place] [address] [place] [address] [facility] [address] [place] [address] Christos Douglas MD [address] [facility] [address] [place] [address] Health Maintenance Due Date Last [...] A AND B BCBS SUPP Care Teams Commutator Assembler Relationship Specialty [place] [address] [place] [address] PCP - General Family Practice 06/01/25
== END 2025-07-17 14:53 | disposition home or self-care (01) ==
PROVIDERS: PCP Nurse Practitioner; Visit Provider Internal Medicine Cardiovascular Disease
DX: Z01.810 Encounter for preprocedural cardiovascular examination (principal); I44.0 Atrioventricular block, first degree
CPT/HCPCS: 93005

== ENCOUNTER 2025-08-07 07:53 | Outpatient (CLI) | payer MEDICARE, SELFPAY ==
--- NOTE | 2025-08-07 07:57 | EST_ITS ---
Patient Info Name: Ludivina Townsend Age: 75 years : 1950 Gender: Female Ht: 64 in Wt: 199 lbs BSA: 2.06 m2 HR: 73 bpm BP: 138 / 81 mmHg Heart Rhythm: Sinus Rhythm Technical Quality: Good Exam Date: 08/07/2025 7:57 AM Patient Status: O Admit Date: 08/07/2025 Exam Type: CA stress beth w NM A regadenoson stress test was performed. Staff Referring Physician: Jerome Enrique DO Attending Provider: Jerome Enrique DO Summary 1. 1. Negative lexiscan stress test for ischemic ST changes by ECG criteria. 2. 2. Stable hemodynamics throughout the test. 3. 3. Nuclear scan to follow and will be reported separately. Please correlate with it. History/Risk Factors Hypertension: Yes Dyslipidemia: Yes Protocol: LEXISCAN Stress ECG Details Stage: REST Duration (min): 0 min : 58 sec HR (bpm): 73 SBP (mmHg): 138 DBP (mmHg): 81 Stage: REST Duration (min): 1 min : 2 sec HR (bpm): 72 SBP (mmHg): 138 DBP (mmHg): 81 Stage: REST Duration (min): 1 min : 31 sec HR (bpm): 72 SBP (mmHg): 138 DBP (mmHg): 81 Stage: REST Duration (min): 8 min : 1 sec HR (bpm): 74 SBP (mmHg): 138 DBP (mmHg): 81 Stage: STAGE 1 Duration (min): 0 min : 20 sec HR (bpm): 76 SBP (mmHg): 138 DBP (mmHg): 81 Stage: RECOVERY Duration (min): 0 min : 39 sec HR (bpm): 94 SBP (mmHg): 138 DBP (mmHg): 81 Stage: RECOVERY Duration (min): 1 min : 39 sec HR (bpm): 93 SBP (mmHg): 138 DBP (mmHg): 81 Stage: RECOVERY Duration (min): 2 min : 39 sec HR (bpm): 92 SBP (mmHg): 170 DBP (mmHg): 78 Stage: RECOVERY Duration (min): 3 min : 39 sec HR (bpm): 89 SBP (mmHg): 162 DBP (mmHg): 80 Stage: RECOVERY Duration (min): 4 min : 39 sec HR (bpm): 82 SBP (mmHg): 165 DBP (mmHg): 80 Stage: RECOVERY Duration (min): 5 min : 39 sec HR (bpm): 83 SBP (mmHg): 156 DBP (mmHg): 77 Stage: RECOVERY Duration (min): 6 min : 17 sec HR (bpm): 79 SBP (mmHg): 160 DBP (mmHg): 75 Rest HR: 74 bpm Peak HR: 98 bpm Rest Sys BP: 138 mmHg Peak Sys BP: 170 mmHg Max Pred HR: 145 bpm % Max Pred HR: 68 % Target HR: 123 bpm Max RPP: 16,660 bpm*mmHg BP Response: Normal blood pressure response Termination Reason: Completed Protocol Cardiac Symptoms: None Total Time: 0 min : 20 sec Rest Gonzalez BP: 81 mmHg Peak Gonzalez BP: 78 mmHg Total Dose: 0.4 mg Resting ECG Sinus rhythm with incomplete RBBB. Stress ECG No abnormal ST/T wave changes. Arrhythmias None. Report Signatures
--- OUTSIDE RECORDS SUMMARY | 2025-08-07 08:01 | XMS_ITS | Clinical Summary ---
Author Organization [facility] Tadeo Soto Address [address] [place] [address] Care Team Providers Care Distribution System Operator Name Role Phone Bebo Oliveros MD Primary Care Provider [phone] Allergies No known active allergies Medications aspirin [...] Abstract 06/01/2025 11:30 AM CDT Office Visit [facility] - [place] [address] [place] [address] Christos Douglas MD Malignant neoplasm of upper-outer quadrant of right breast in female, estrogen receptor positive (CMS/HCC) (Primary Dx) 05/30/2025 External Device Data [facility] ABSTRACTION Provider, Abstract 05/30/2025 External Device Data [facility] ABSTRACTION Provider, Abstract 05/29/2025 Orders Only [facility]ology - [place] [address] [place] [address] Christos Douglas MD 05/26/2025 Orders Only [facility] - [place] [address] [place] [address] Christos Douglas MD 05/23/2025 Orders Only [facility] - [place] [address] [place] [address] Christos Douglas MD from Last 3 Months Family History Medical [...] st Contact Info) Description 08/31/2025 2:00 PM FLUE BLOWER Office Visit [facility] - [place] [address] [facility] [address] [place] [address] Christos Douglas MD [address] [facility] [address] [place] [address] Health Maintenance Due Date Last [...] METABOLIC PANEL (05/26/2025 12:04 PM CDT) Blood Christos Douglas MD CHEMISTRY ORDERABLES Final Resu lt * CBC WITH AUTODIFFERENTIAL (05/26/2025 11:45 AM CDT) Blood Christos Douglas MD HEMATOLOGY ORDERABLES Final Res ult * NM BONE DENSITY (05/22/2025 7:45 AM CDT) Anatomical Region Laterality Modality Nuclear Medicine Christos Douglas MD NM ORDERABLES Final Result from Last 3 Months Insurance MEDICARE PART A AND B [facility] Care Teams Distribution System Operator Relationship Specialty [place] [id number] [place] [address] PCP - General Family Practice 06/01/25
--- NOTE | 2025-08-07 13:39 | WPDCARIOSTRE ---
Nuclear Stress Test INDICATIONS Indications: Dyspnea PROCEDURE Procedure Performed: Myocardial Perf Spect-Multi Procedure: Patient underwent a lexiscan stress test and immediately was injected with 32.7 mCi of cardiolyte. Multple tomographic images were obtained. These are of good quality. There is no evidence of perfusion defect with stress imaging. A separate resting images was obtained after patient was injected with 10.3 mCi of cardiolyte. Multple tomographic images were obtained. These are of good quality. There is no evidence of perfusion defect with rest imaging. CONCLUSION Conclusion: 1. Normal myocardial perfusion imaging demonstrating no perfusion defects with stress or rest imaging. 2. No evidence of reversible ischemia. 3. Left ventriculogram demonstrates normal measured ejection fraction of 72% with no wall motion abnormalities. 4. TID score 0.89 is not elevated.
== END 2025-08-07 07:54 | disposition home or self-care (01) ==
PROVIDERS: PCP Nurse Practitioner; Visit Provider Internal Medicine Cardiovascular Disease
DX: Z01.810 Encounter for preprocedural cardiovascular examination (principal)
CPT/HCPCS: 78452; 93017; A9502; J2785

== ENCOUNTER 2025-08-22 10:03 | Outpatient (CLI) | payer MEDICARE, SELFPAY ==
[2025-08-22 11:02] LABS: Hematocrit 39.3 % (37.0-47.0); Hemoglobin 12.7 g/dL (12.0-15.0); Immature Granulocyte Percent A 0.4 % (0-0.5); Lymphocytes Absolute Auto 1.55 K/mm3 (0.9-3.2); Mean Corpuscular HGB Conc 32.3 g/dl (32-36); Mean Corpuscular Hemoglobin 28.9 pg (26-34); Mean Corpuscular Volume 89.3 fl (80-100); Nucleated Red Blood Cells Absolute Auto 0.000 K/mm3 (0.0-0.012); Nucleated Red Blood Cells Perc 0.0 % (0.0-0.2); Platelet Count Result 283 k/mm3 (150-375); Red Blood Count 4.40 M/mm3 (4.2-5.4); White Blood Count 8.0 K/mm3 (4.5-10.0)
[2025-08-22 12:37] LABS: Cholesterol 182 mg/dL (0-200); HDL Direct 46 mg/dL; Triglycerides 201 mg/dL (<150)
[2025-08-22 12:38] LABS: Alanine Aminotransferase 22 U/L (6-35); Albumin Level 4.0 g/dL (3.5-5.1); Alkaline Phosphatase 102 U/L (38-126); Anion Gap 6 mmol/L (4-12); Aspartate Amino Transferase 42 U/L (14-36); Bilirubin,Total 0.7 mg/dL (0.2-1.3); Blood Urea Nitrogen 17 mg/dL (7-17); Calcium 8.8 mg/dL (8.4-10.2); Carbon Dioxide 26 mmol/L (22-30); Chloride 104 mmol/L (98-107); Estimated Glomerular Filt Rate 55; Glucose 108 mg/dL (65-110); Potassium 4.2 mmol/L (3.4-5.0); Sodium 136 mmol/L (137-145); Total Protein 7.3 g/dL (6.3-8.2)
[2025-08-22 13:13] LABS: Thyroid Stimulating Hormone 2.020 uIU/mL (0.465-4.680)
== END 2025-08-22 10:04 | disposition home or self-care (01) ==
LOC: ANHLAB 10:04
PROVIDERS: PCP Nurse Practitioner; Visit Provider Internal Medicine Hematology & Oncology
DX: C50.411 Malignant neoplasm of upper-outer quadrant of right female breast (principal); Z17.0 Estrogen receptor positive status [ER+]
CPT/HCPCS: 36415; 80053; 80061; 84443; 85025; 86300